=== PATIENT | female | born 1980 | race African-American/Black ===

== ENCOUNTER → 2018-07-07 | Outpatient (CLI) | payer BC | LOC: OD 16:29 | PROVIDERS: ATTEND Internal Medicine Rheumatology | DX: Z53.9 Procedure and treatment not carried out, unspecified reason (principal) ==

== ENCOUNTER → 2018-11-16 | Outpatient (CLI) | payer BC ==
--- NOTE | 2018-11-16 16:16 | XCELERA REPORT ---
[address] [address] Transthoracic Echocardiogram Report Name: GILSON AGUAYO Age: 37 yrs Gender: Female : 1980 Patient Status: Outpatient Patient Location: [facility] Study Date: 11/16/2018 02:14 PM Height: 26.5 in Weight: 180 lb BSA: 0.98 m2 Procedure: A complete two-dimensional transthoracic echocardiogram was performed (2D, M-mode, spectral and color flow Doppler). The study was technically adequate with some images being suboptimal in quality. Reason For Study: CP Ordering Physician: NANCI GRIMM Performed By: Pratibha Sorto Interpretation Summary The left ventricular ejection fraction is normal. There is normal left ventricular wall thickness. The left ventricle is normal in size. Doppler measurements suggest normal left ventricular diastolic function No regional wall motion abnormalities noted. The right ventricle is grossly normal size. The right ventricular systolic function is normal. The left atrial size is normal. The right atrium is normal. There is no mitral regurgitation noted. There is no mitral valve stenosis. There is no aortic valve stenosis No aortic regurgitation is present. There is a trace or physiologic amount of tricuspid regurgitation Right ventricular systolic pressure is at the upper limits of normal The aortic root is not well visualized but is probably normal size. The inferior vena cava appeared normal and decreased > 50% with respiration (RAP 5-10 mmHg) There is no pericardial effusion. MMode/2D Measurements & Calculations RVDd: 2.4 cm LVIDd: 4.7 cm FS: 41.2 % Ao root diam: IVSd: 0.89 cm LVIDs: 2.8 cm EDV(Teich): 2.7 cm 103.3 ml Ao root area: LVPWd: 0.90 cm ESV(Teich): 5.7 cm2 28.8 ml EF(Teich): 72.1 % EDV(MOD-sp4): SV(MOD-sp4): 104.6 ml 67.9 ml ESV(MOD-sp4): 36.7 ml EF(MOD-sp4): 65.0 % Doppler Measurements & Calculations MV E max thierry: MV dec slope: Ao V2 max: LV V1 max P.9 cm/sec 140.5 cm/sec 5.2 mmHg MV A max thierry: 404.9 cm/sec2 Ao max P.9 mmHgLV V1 max: 39.8 cm/sec MV dec time: 0.20 sec 114.5 cm/sec MV E/A: 2.1 PA V2 max: PI max thierry: TR max thierry: 91.9 cm/sec 96.4 cm/sec 223.1 cm/sec PA max P.4 mmHgPI max P.7 mmHg TR max P.2 mmHg Left Ventricle The left ventricle is normal in size. There is normal left ventricular wall thickness. The left ventricular ejection fraction is normal. Doppler measurements suggest normal left ventricular diastolic function. No regional wall motion abnormalities noted. Right Ventricle The right ventricle is grossly normal size. There is normal right ventricular wall thickness. The right ventricular systolic function is normal. Atria The right atrium is normal. The left atrial size is normal. Interarterial septum not well visualized and not well dopplered. Cannot comment on ASD/PFO presence. Mitral Valve The mitral valve is grossly normal. There is no evidence of mitral valve prolapse. There is no mitral valve stenosis. There is no mitral regurgitation noted. Aortic Valve The aortic valve is trileaflet. The aortic valve is grossly normal. There is no aortic valve stenosis. No aortic regurgitation is present. Tricuspid Valve The tricuspid valve is not well visualized, but is grossly normal. There is no tricuspid stenosis. There is a trace or physiologic amount of tricuspid regurgitation. Right ventricular systolic pressure is at the upper limits of normal. Pulmonic Valve The pulmonic valve is not well seen, but is grossly normal. There is no pulmonic valvular stenosis. There is a mild amount of pulmonic regurgitation. Great Vessels The aortic root is not well visualized but is probably normal size. The inferior vena cava appeared normal and decreased > 50% with respiration (RAP 5-10 mmHg). Effusions There is no pericardial effusion. : NANCI GRIMM > Tran Renee
== END ==
LOC: SP 13:40
PROVIDERS: ATTEND Internal Medicine
DX: R07.9 Chest pain, unspecified (principal)
CPT/HCPCS: 93306

== ENCOUNTER → 2019-01-18 | Outpatient (CLI) | payer BC ==
[2019-01-18 09:23] LABS: ABSOLUTE EOSINOPHILS # (AUTO) 0.1 10^3/uL (0.0-0.6); ABSOLUTE LYMPHOCYTES (AUTO) 1.5 10^3/uL (0.5-4.7); ABSOLUTE MONOCYTES (AUTO) 0.5 10^3/uL (0.1-1.4); BASOPHILS % (AUTO) 0.6 % (0-2); EOSINOPHILS % (AUTO) 2.4 % (0-6); HEMATOCRIT 31.4 % (36.0-47.0); HEMOGLOBIN 10.1 g/dL (12.0-15.5); LYMPHOCYTES % (AUTO) 28.2 % (13-45); MEAN CORPUSCULAR HEMOGLOBIN 25.7 pg (27.0-33.4); MEAN CORPUSCULAR HGB CONC 32.1 g/dL (32.0-36.0); MEAN CORPUSCULAR VOLUME 80 fl (80-97); MONOCYTES % (AUTO) 10.1 % (3-13); PLATELET COUNT 265 10^3/uL (150-450); RED BLOOD COUNT 3.92 10^6/uL (3.72-5.28); RED CELL DISTRIBUTION WIDTH 15.2 % (11.5-14.0); SEGMENTED NEUTROPHILS % (AUTO) 58.7 % (42-78); TOTAL CELLS COUNTED % (AUTO) 100 %; WHITE BLOOD COUNT 5.2 10^3/uL (4.0-10.5)
[2019-01-18 09:50] LABS: ALANINE AMINOTRANSFERASE 16 U/L (9-52); ALBUMIN 4.1 g/dL (3.5-5.0); ALKALINE PHOSPHATASE 80 U/L (38-126); ANION GAP 8 (5-19); ASPARTATE AMINO TRANSFERASE 19 U/L (14-36); BILIRUBIN,DIRECT 0.2 mg/dL (0.0-0.4); BILIRUBIN,TOTAL 0.4 mg/dL (0.2-1.3); BLOOD UREA NITROGEN 12 mg/dL (7-20); CALCIUM 9.8 mg/dL (8.4-10.2); CARBON DIOXIDE 27 mmol/L (22-30); CHLORIDE 107 mmol/L (98-107); GLUCOSE 88 mg/dL (75-110); SODIUM 142.3 mmol/L (137-145); TOTAL PROTEIN 7.1 g/dL (6.3-8.2)
--- NOTE | 2019-01-18 12:26 | RADIOLOGY REPORT (SQ) ---
EXAM DESCRIPTION: CT ABD/PELVIS WITH IV ORAL COMPLETED DATE/TIME: 01/18/2019 12:06 pm REASON FOR STUDY: ABDOMINAL PAIN R10.9 UNSPECIFIED ABDOMINAL PAIN COMPARISON: None. TECHNIQUE: CT scan of the abdomen and pelvis performed using helical scanning technique with dynamic intravenous contrast injection. Patient drank oral contrast. Images reviewed with lung, soft tissue , and bone windows. Reconstructed coronal and sagittal MPR images reviewed. Delayed images for evalua tion of the urinary system also acquired. All images stored on PACS. All CT scanners at this facility use dose modulation, iterative reconstruction, and/or weight based d osing when appropriate to reduce radiation dose to as low as reasonably achievable (ALARA). [facility]: Dose Right [facility]: CareDose [facility]: Dose Right [facility]: Teradose 4D [facility]: ARDACO CONTRAST TYPE AND DOSE: 85 mL of IV Omnipaque 350- low osmolar. RENAL FUNCTION: Creatinine 0.74 RADIATION DOSE: CT Rad equipment meets quality standard of care and radiation dose reduction techniq ues were employed. CTDIvol: 7.7 - 9.0 mGy. DLP: 929 mGy-cm.. LIMITATIONS: None. FINDINGS: LOWER CHEST: Lung bases clear. No nodules or infiltrates. Tiny hiatal hernia LIVER: Normal size. No masses. No dilated ducts. SPLEEN: Normal size. No focal lesions. PANCREAS: No masses. No significant calcifications. No adjacent inflammation or peripancreatic fluid collections. Pancreatic duct not dilated. GALLBLADDER: No identified stones by CT criteria. No inflammatory changes to suggest cholecystitis. ADRENAL GLANDS: No significant masses or asymmetry. RIGHT KIDNEY AND URETER: No solid masses. No significant calcifications. No hydronephrosis or hyd roureter. LEFT KIDNEY AND URETER: No solid masses. No significant calcifications. No hydronephrosis or hydr oureter. AORTA AND VESSELS: No aneurysm. No dissection. Renal arteries, SMA, celiac without stenosis. RETROPERITONEUM: No retroperitoneal adenopathy, hemorrhage or masses. BOWEL AND PERITONEAL CAVITY: Patient drank oral contrast. No CT evidence of bowel obstruction or norris e intraperitoneal air or fluid. APPENDIX: Normal. PELVIS: No mass. No free fluid. Normal bladder. Normal size female pelvic organs. 3.5 cm right ova delano cyst. No free pelvic fluid. ABDOMINAL WALL: No masses. No hernias. BONES: No significant or acute findings. OTHER: No other significant finding. IMPRESSION: NO SIGNIFICANT OR ACUTE FINDING IN THE ABDOMEN OR PELVIS ON CT SCAN WITH IV CONTRAST. TECHNICAL DOCUMENTATION: JOB ID: [id number] Quality ID # [id number]: Final reports with documentation of one or more dose reduction techniques (e.g., Au tomated exposure control, adjustment of the mA and/or kV according to patient size, use of iterative reconstruction technique) 2010 [employer]- All Rights Reserved Reading location - IP/workstation name: [email or web address]
== END ==
LOC: RAD 09:10
PROVIDERS: ATTEND Family Medicine Geriatric Medicine
DX: R10.9 Unspecified abdominal pain (principal); Z79.899 Other long term (current) drug therapy
CPT/HCPCS: 36415; 74177; 80053; 85025

== ENCOUNTER → 2019-09-26 | Outpatient (CLI) | payer BC ==
--- NOTE | 2019-09-26 09:43 | RADIOLOGY REPORT (SQ) ---
EXAM DESCRIPTION: MRI HEAD WITHOUT COMPLETED DATE/TIME: 09/26/2019 9:17 am REASON FOR STUDY: G43.009 MIGRAINE W/O AURA, NOT INTRACTABLE, W/O STATUS MIGRAINOSUS G43.009 MIGRAI NE W/O AURA, NOT INTRACTABLE, W/O STATUS MIGRA COMPARISON: None. TECHNIQUE: Multiplanar imaging includes non-contrasted T1, T2, FLAIR, and diffusion with ADC map seq uences. Images stored on PACS. LIMITATIONS: Artifact from metallic dental work over the facial soft tissues and inferior frontal re gion. FINDINGS: ANATOMY: No anomalies. Normal vascular flow voids. Pituitary fossa normal. CSF SPACES: Normal in size and contour. No hemorrhage. CEREBRUM: Sulci and gyri normal in size and contour. Normal white matter signal on FLAIR imaging. No evidence of hemorrhage, mass, or extraaxial fluid collection. POSTERIOR FOSSA: No signal alteration. No hemorrhage. No edema, masses or mass effect. Internal chinyere tory canals, cerebello-pontine angles, mastoids normal. DIFFUSION IMAGING: Negative for acute or sub-acute infarction. ORBITS: No masses. Globes normal. PARANASAL SINUSES: No fluid levels. Mucosa normal. OTHER: No other significant finding. IMPRESSION: NORMAL MRI OF THE BRAIN WITHOUT INTRAVENOUS GADOLINIUM CONTRAST. EVIDENCE OF ACUTE STROKE: NO. TECHNICAL DOCUMENTATION: JOB ID: [id number]- All Rights Reserved Reading location - IP/workstation name: [email or web address]
== END ==
LOC: RAD 08:42
PROVIDERS: ATTEND Nurse Practitioner Family
DX: G43.009 Migraine without aura, not intractable, without status migrainosus (principal)
CPT/HCPCS: 70551

== ENCOUNTER → 2019-10-11 | Outpatient (CLI) | payer BC ==
--- NOTE | 2019-10-12 12:07 | XCELERA REPORT ---
[address] [place] [facility] [address] Lower Extremity Venous Evaluation Procedure: Color flow and duplex imaging of the veins of the left lower extremity as well as the right Common Femoral vein. Right Sided Venous Evaluation The right common femoral vein is fully compressible. Spontaneous and phasic flow is present in the right common femoral vein. Left Sided Venous Evaluation Normal vessel filling wall to wall, compression and augmentation as well as Colour flow down to the infrageniculate veins. Interpretation Summary No duplex evidence of DVT or obstruction in the left lower extremity nor in the right Common Femoral vein. Name: GILSON AGUAYO Age: 38 yrs Gender: Female : 1980 Patient Status: Outpatient Patient Location: Study Date: 10/11/2019 03:45 PM Reason For Study: LLE PAIN Ordering Physician: EVITA BELLO Performed By: Arnie Guillen : EVITA BELLO > Kendell Crawley
== END ==
LOC: SP 15:17
PROVIDERS: ATTEND Internal Medicine
DX: I82.409 Acute embolism and thrombosis of unspecified deep veins of unspecified lower extremity (principal); M79.605 Pain in left leg
CPT/HCPCS: 93971

== ENCOUNTER → 2019-12-22 | Outpatient (CLI) | payer BC ==
[2019-12-22 09:57] LABS: TRIGLYCERIDES 71 mg/dL (<150)
[2019-12-22 10:07] LABS: DIRECT LDL 93 mg/dL (<100)
== END ==
LOC: OD 08:38
PROVIDERS: ATTEND Nurse Practitioner Family
DX: E03.9 Hypothyroidism, unspecified (principal); E78.2 Mixed hyperlipidemia; I10 Essential (primary) hypertension; Z79.899 Other long term (current) drug therapy
CPT/HCPCS: 36415; 80061; 83036; 84443

== ENCOUNTER 2020-02-20 17:11 | Emergency (ER) | payer BC ==
[2020-02-20] MEDS ORDERED: ONDANSETRON HCL INJ/PF 4 MG/2 ML SDV IV ONE (18:08)
[2020-02-20] MEDS ORDERED: RINGERS SOLUTION,LACTATED 1,000 ML IV ONE (18:08)
--- NOTE | 2020-02-20 18:10 | ER Document Report ---
ED Medical Screen (RME) - General Chief Complaint: Abnormal Lab Results Stated Complaint: ABNORMAL LABS Time Seen by Provider: 02/20/20 18:01 Primary Care Provider: STACEY BARTHOLOMEW FNP-C [Primary Care Provider] - Follow up as needed Mode of Arrival: Ambulatory Information source: Patient Notes: HPI; 39-year-old female presents emergency room complaining of ongoing nausea, vomiting, joint pain, itching and abdominal pain that started about 4 to 6 weeks ago has been seeing her dredge runner and getting steroids and infusion treatments. States on Tuesday she noticed that her eyes were yellow. Saw her dredge runner who did labs and referred her to the emergency room for abnormal liver enzymes. Patient does complain of right upper quadrant pain also complains of nausea but no vomiting. PE: Alert and oriented x3, mild distress noted. Scleral icterus. Lungs: Clear to auscultation without rales rhonchi wheezes. Heart: Regular rate rhythm without murmurs, rubs, gallops. Abdomen tender on palpation to the right upper quadrant. Unable to do full abdominal exam in triage. I have greeted and performed a rapid initial assessment of this patient. A com prehensive ED assessment and evaluation of the patient, analysis of test results and completion of the medical decision making process will be conducted by additional ED providers. I have specifically instructed the patient or family members with the patient to immediately return to any nursing staff should anything change in the patient's condition or with their chief complaint. TRAVEL OUTSIDE OF THE [place] IN LAST 30 DAYS: No - Related Data Allergies/Adverse Reactions: adalimumab [From Humira] Allergy (Verified 02/20/20 18:06) Physical Exam - Vital signs Vitals: Temp Pulse Resp BP Pulse Ox 98.5 F 101 H 20 188/103 H 98 02/20/20 17:16 02/20/20 17:16 02/20/20 17:16 02/20/20 17:16 02/20/20 17:16 Course - Vital Signs Vital signs: Temp Pulse Resp BP Pulse Ox 98.5 F 101 H 20 188/103 H 98 02/20/20 18:02 02/20/20 17:16 02/20/20 17:16 02/20/20 17:16 02/20/20 17:16 Doctor's Discharge - Discharge Referrals: GILBERT,STORMY, COMMUNITY FACILITATOR-C [Primary Care Provider] - Follow up as needed
--- NOTE | 2020-02-20 18:54 | RADIOLOGY REPORT (SQ) ---
EXAM DESCRIPTION: U/S ABDOMEN LTD W/DOPPLER IMAGES COMPLETED DATE/TIME: 02/20/2020 6:44 pm REASON FOR STUDY: RUQ pain COMPARISON: None. TECHNIQUE: Dynamic and static grayscale images acquired of the abdomen and recorded on PACS. Additio nal selected color Doppler and spectral images recorded. LIMITATIONS: None. FINDINGS: PANCREAS: The head and body of the pancreas are of normal echogenicity. The tail is obsc ured by overlying bowel gas. LIVER: Fatty liver. The liver measures 17.1 cm in length, upper limits of normal for size. LIVER VASCULATURE: Normal directional flow of the main portal vein and hepatic veins. GALLBLADDER: The patient is not NPO. The gallbladder is partially contracted which limits the examin ation. The gallbladder wall measures 3.0 mm, upper limits normal wall thickness. No pericholecystic fluid. ULTRASOUND-DETECTED LUCAS'S SIGN: Positive. INTRAHEPATIC DUCTS AND COMMON DUCT: CBD measures 3.0 mm in diameter, normal. The intrahepatic ducts normal caliber. No filling defects. INFERIOR VENA CAVA: Normal flow. AORTA: No aneurysm. RIGHT KIDNEY: The right kidney measures 12.0 x 4.9 x 5.7 cm, normal Normal size. Normal echogenicity . No solid or suspicious masses. No hydronephrosis. No calcifications. PERITONEAL AND RIGHT PLEURAL SPACE: No ascites or effusions. OTHER: No other significant findings. IMPRESSION: 1. The patient is not NPO. The gallbladder is partially contracted which limits examina tion. Positive Lucas's sign. 2. Fatty liver. 3. The tail of the pancreas is obscured by overlying bowel gas. TECHNICAL DOCUMENTATION: JOB ID: [id number] 2010 [employer]- All Rights Reserved Reading location - IP/workstation name: [email or web address]
[2020-02-20 19:07] LABS: HEMATOCRIT 33.1 % (36.0-47.0); MEAN CORPUSCULAR HGB CONC 33.2 g/dL (32.0-36.0); MEAN CORPUSCULAR VOLUME 81 fl (80-97); PLATELET COUNT 258 10^3/uL (150-450); RED BLOOD COUNT 4.07 10^6/uL (3.72-5.28); RED CELL DISTRIBUTION WIDTH 18.5 % (11.5-14.0); WHITE BLOOD COUNT 5.6 10^3/uL (4.0-10.5)
[2020-02-20 19:23] LABS: ALBUMIN 3.9 g/dL (3.5-5.0); ALKALINE PHOSPHATASE 376 U/L (38-126); AMYLASE 98 U/L (30-110); ANION GAP 6 (5-19); BILIRUBIN,DIRECT 6.1 mg/dL (0.0-0.4); BILIRUBIN,TOTAL 7.3 mg/dL (0.2-1.3); BLOOD UREA NITROGEN 8 mg/dL (7-20); CALCIUM 9.6 mg/dL (8.4-10.2); CARBON DIOXIDE 30 mmol/L (22-30); CHLORIDE 104 mmol/L (98-107); GLUCOSE 98 mg/dL (75-110); POTASSIUM 3.7 mmol/L (3.6-5.0); TOTAL PROTEIN 8.9 g/dL (6.3-8.2)
[2020-02-20 19:25] LABS: ABSOLUTE LYMPHOCYTES# (MANUAL) 2.2 10^3/uL (0.5-4.7); ABSOLUTE MONOCYTES # (MANUAL) 0.7 10^3/uL (0.1-1.4); BASOPHILS % (MANUAL) 1 % (0-2); EOSINOPHILS % (MANUAL) 1 % (0-6); LYMPHOCYTES % (MANUAL) 40 % (13-45); METAMYELOCYTES % (MANUAL) 1 % (0-1); MONOCYTES % (MANUAL) 13 % (3-13); SEGMENTED NEUTROPHILS % (MAN) 44 % (42-78); TOTAL CELLS COUNTED 100
[2020-02-20 19:26] LABS: ANISOCYTOSIS 2+; APPEARANCE,URINE CLEAR; BILIRUBIN,URINE NEGATIVE (NEGATIVE); COLOR,URINE AMBER; GLUCOSE, URINE NEGATIVE (NEGATIVE); KETONES,URINE NEGATIVE (NEGATIVE); LEUKOCYTE ESTERASE,URINE NEGATIVE (NEGATIVE); NITRITE,URINE NEGATIVE (NEGATIVE); PLATELET COMMENT ADEQUATE; PROTEIN,URINE NEGATIVE (NEGATIVE); TARGET CELLS 2+
[2020-02-20 20:48] LABS: ASPARTATE AMINO TRANSFERASE 1921 U/L (14-36)
[2020-02-20] MEDS ORDERED: ONDANSETRON HCL INJ/PF 4 MG/2 ML SDV ONE (20:57)
--- NOTE | 2020-02-20 23:11 | ER Document Report ---
ED General - General Chief Complaint: Abnormal Lab Results Stated Complaint: ABNORMAL LABS Time Seen by Provider: 02/20/20 18:01 Primary Care Provider: STACEY BARTHOLOMEW FNP-C [Primary Care Provider] - Follow up as needed Mode of Arrival: Ambulatory TRAVEL OUTSIDE OF THE [place] IN LAST 30 DAYS: No - HPI Onset: Other - over the last 6 weeks Onset/Duration: Gradual Quality of pain: Pressure - in RUQ area Severity: Moderate Pain Level: 2 Associated symptoms: Diarrhea, Nausea, Vomiting Exacerbated by: Denies Relieved by: Denies Similar symptoms previously: No Recently seen / treated by doctor: Yes - patient has been seen and followed by her Laborer Salvage recently Notes: 39 year old female with a history of Hypothyroidism, Hypertension, Nonischemic Cardiomyopathy, Rheumatoid Arthritis who was recently started in Infliximab infusions in November (her last infusion was in January) sent to the ER by her Rheum atologist due to concern of liver failure. 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 The patient was recently tested for Hepatitis(s) last week and they were all negative. - Related Data Allergies/Adverse Reactions: adalimumab [From Humira] Allergy (Verified 02/20/20 18:06) Past Medical History - General Information source: Patient - Social History Smoking Status: Never Smoker Frequency of alcohol use: None Drug Abuse: None Family History: Reviewed & Not Pertinent Patient has suicidal ideation: No Patient has homicidal ideation: No - Past Medical History Cardiac Medical History: Reports: Hx Hypertension Endocrine Medical History: Reports: Hx Hypothyroidism Musculoskeletal Medical History: Reports Other - Rheumatoid Arthritis Review of Systems - Review of Systems Constitutional: No symptoms reported, Weakness EENT: No symptoms reported Cardiovascular: No symptoms reported Respiratory: No symptoms reported Gastrointestinal: Abdominal pain, Diarrhea, Nausea, Vomiting Genitourinary: Other - dark colored urine Female Genitourinary: No symptoms reported Musculoskeletal: No symptoms reported Skin: Other - yellow colored skin, itchy skin Hematologic/Lymphatic: No symptoms reported Neurological/Psychological: No symptoms reported -: Yes All other systems reviewed and negative Physical Exam - Vital signs Vitals: Temp Pulse Resp BP Pulse Ox 98.5 F 101 H 20 188/103 H 98 02/20/20 17:16 02/20/20 17:16 02/20/20 17:16 02/20/20 17:16 02/20/20 17:16 - Notes Notes: GENERAL: Well-appearing, well-nourished and in no acute distress. HEAD: Atraumatic, normocephalic. EYES: Scleral icterus, Pupils equal round and reactive to light, extraocular movements intact ENT: External Ears normal, nares patent, oropharynx clear without exudates. Moist mucous membranes. NECK: Normal range of motion, supple without lymphadenopathy or JVD. LUNGS: Breath sounds clear to auscultation bilaterally and equal. No wheezes rales or rhonchi. HEART: Regular rate and rhythm without murmurs, rubs or gallops. ABDOMEN: Soft, mild tenderness in RUQ, normoactive bowel sounds. No guarding, no rebound. No masses appreciated. EXTREMITIES: Normal range of motion, no pitting or edema. No clubbing or cyanosis. NEUROLOGICAL: Cranial nerves II through XII grossly intact. Normal speech, normal gait. PSYCH: Normal mood, normal affect. SKIN: Warm, Dry, normal turgor, no rashes or lesions noted. Course - Re-evaluation Re-evalutation: 02/21/20 00:16 The patient is in new onset liver failure which could be due to an autoimmune disease or a medication side effect or other cause. RUQ ultrasound shows mild he patic steatosis. There is no GI here at [facility] so [facility] was called. 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 No interventions needed here in the ER at this time. The patient has received fluids and zofran after she was screen by a midlevel provider in triage before I evaluated the patient. - Vital Signs Vital signs: Temp Pulse Resp BP Pulse Ox 98.3 F 99 20 159/88 H 100 02/20/20 22:15 02/20/20 22:15 02/20/20 20:36 02/20/20 22:15 02/20/20 22:15 - Laboratory Result Diagrams: 02/20/20 18:45 02/20/20 18:45 Laboratory results interpreted by me: 02/20/20 02/20/20 02/20/20 18:45 18:45 18:45 Hgb 11.0 L Hct 33.1 L RDW 18.5 H Total Bilirubin 7.3 H Direct Bilirubin 6.1 H AST 1921 H ALT 709 H Alkaline Phosphatase 376 H Total Protein 8.9 H Urine Urobilinogen 4.0 H Acetaminophen 02/20/20 18:45 Hgb Hct RDW Total Bilirubin Direct Bilirubin AST ALT Alkaline Phosphatase Total Protein Urine Urobilinogen Acetaminophen < 10 L - Diagnostic Test Radiology reviewed: Image reviewed, Reports reviewed Discharge - Discharge Clinical Impression: Liver failure Qualifiers: Liver failure chronicity: acute Hepatic coma status: without hepatic coma Qualified Code(s): K72.00 - Acute and subacute hepatic failure without coma Condition: Stable Disposition: [facility] Admitting Provider: Dr. Rao Referrals: STACEY BARTHOLOMEW FNP-C [Primary Care Provider] - Follow up as needed
[2020-02-21 00:49] LABS: INTERNATIONAL RATION (INR) 1.01; PROTHROMBIN TIME 13.3 SEC (11.4-15.4)
[2020-02-21] MEDS ORDERED: ONDANSETRON HCL INJ/PF 4 MG/2 ML SDV IV ONE ×2 (09:47→19:51)
[2020-02-21] MEDS ORDERED: LEVOTHYROXINE SODIUM 0.025 MG TABLET PO ONE ×2 (11:07→16:30)
[2020-02-21] MEDS ORDERED: RANOLAZINE 500 MG TAB.SR.12H PO ONE (11:13)
[2020-02-21] MEDS ORDERED: CHLORTHALIDONE 25 MG TABLET PO SCH ×2 (11:15→12:00)
[2020-02-21] MEDS: LOSARTAN POTASSIUM 50 MG TABLET PO SCH ×2 (13:10→17:42)
[2020-02-21] MEDS ORDERED: IBUPROFEN 600 MG TABLET PO ONE (13:21)
[2020-02-21 22:59] VITALS: BP 148/105
--- NOTE | 2020-02-22 02:08 | ER Document Report ---
Doctor's Note Notes: 02/22/20 02:07 This note is being entered late, patient was seen on 02/21/2020 at 2300. Patient was sitting up in bed, quite cheerful, stable, still had scleral icterus. Transport was at bedside. Patient had no questions. She is stable for transport.
== END 2020-02-21 20:30 | disposition short-term general hospital (02) ==
LOC: ER 17:11
DX: K72.00 Acute and subacute hepatic failure without coma (principal); I10 Essential (primary) hypertension; R19.7 Diarrhea, unspecified; R11.2 Nausea with vomiting, unspecified; R10.11 Right upper quadrant pain; Z20.828 Contact with and (suspected) exposure to other viral communicable diseases
CPT/HCPCS: 96376; 99285; 96361; 96374; 36415; 82150; 83690; 80307; 85025; 85610; 85730; 87635; 80053; 81001; 76705; 93976; J2405 ×2; J7120; C9803

== ENCOUNTER → 2020-03-03 | Outpatient (CLI) | payer BC ==
[2020-03-03 13:02] LABS: HEMATOCRIT 34.6 % (36.0-47.0); HEMOGLOBIN 11.4 g/dL (12.0-15.5); INTERNATIONAL RATION (INR) 0.93; MEAN CORPUSCULAR HEMOGLOBIN 27.2 pg (27.0-33.4); MEAN CORPUSCULAR VOLUME 82 fl (80-97); PROTHROMBIN TIME 12.5 SEC (11.4-15.4); RED BLOOD COUNT 4.21 10^6/uL (3.72-5.28); RED CELL DISTRIBUTION WIDTH 18.3 % (11.5-14.0); WHITE BLOOD COUNT 11.4 10^3/uL (4.0-10.5)
[2020-03-03 13:19] LABS: ALBUMIN 3.6 g/dL (3.5-5.0); ALKALINE PHOSPHATASE 309 U/L (38-126); ASPARTATE AMINO TRANSFERASE 269 U/L (14-36); BILIRUBIN,DIRECT 2.7 mg/dL (0.0-0.4); BILIRUBIN,TOTAL 3.8 mg/dL (0.2-1.3); TOTAL PROTEIN 7.5 g/dL (6.3-8.2)
[2020-03-03 13:32] LABS: ABSOLUTE MONOCYTES # (MANUAL) 0.6 10^3/uL (0.1-1.4); BAND NEUTROPHILS % (MANUAL) 1 % (3-5); BASOPHILS % (MANUAL) 0 % (0-2); EOSINOPHILS % (MANUAL) 0 % (0-6); LYMPHOCYTES % (MANUAL) 9 % (13-45); MONOCYTES % (MANUAL) 5 % (3-13); SEGMENTED NEUTROPHILS % (MAN) 85 % (42-78); TOTAL CELLS COUNTED 100
[2020-03-03 13:33] LABS: ANISOCYTOSIS 2+; PLATELET CLUMPS PRESENT; POIKILOCYTOSIS SLIGHT; POLYCHROMASIA 1+; SCHISTOCYTES SLIGHT; TARGET CELLS 2+; TEAR DROP CELLS SLIGHT
[2020-03-03 13:34] LABS: PLATELET COMMENT ADEQUATE; PLATELET COUNT 296 10^3/uL (150-450)
== END ==
LOC: OD 12:01
PROVIDERS: ATTEND Internal Medicine
DX: K75.4 Autoimmune hepatitis (principal); R94.5 Abnormal results of liver function studies
CPT/HCPCS: 36415; 80076; 85025; 85610

== ENCOUNTER → 2020-03-05 | Outpatient (CLI) | payer BC ==
--- NOTE | 2020-03-05 17:09 | RADIOLOGY REPORT (SQ) ---
EXAM DESCRIPTION: CHEST PA/LATERAL IMAGES COMPLETED DATE/TIME: 03/05/2020 4:51 pm REASON FOR STUDY: PLEURISY COMPARISON: None. EXAM PARAMETERS: NUMBER OF VIEWS: two views TECHNIQUE: Digital Frontal and Lateral radiographic views of the chest acquired. RADIATION DOSE: NA LIMITATIONS: none FINDINGS: LUNGS AND PLEURA: No opacities, masses or pneumothorax. No pleural effusion. MEDIASTINUM AND HILAR STRUCTURES: No masses or contour abnormalities. HEART AND VASCULAR STRUCTURES: Heart normal size. No evidence for failure. BONES: No acute findings. HARDWARE: None in the chest. OTHER: No other significant finding. IMPRESSION: NO SIGNIFICANT RADIOGRAPHIC FINDING IN THE CHEST. TECHNICAL DOCUMENTATION: JOB ID: [id number] 2010 [employer]- All Rights Reserved Reading location - IP/workstation name: [email or web address]
== END ==
LOC: OD 16:39
PROVIDERS: ATTEND Nurse Practitioner Family
DX: R09.1 Pleurisy (principal)
CPT/HCPCS: 71046

== ENCOUNTER → 2020-03-19 | Outpatient (CLI) | payer BC ==
[2020-03-19 08:23] LABS: ABSOLUTE LYMPHOCYTES (AUTO) 3.5 10^3/uL (0.5-4.7); ABSOLUTE MONOCYTES (AUTO) 0.7 10^3/uL (0.1-1.4); ABSOLUTE NEUT (AUTO) 4.9 10^3/uL (1.7-8.2); BASOPHILS % (AUTO) 0.3 % (0-2); EOSINOPHILS % (AUTO) 0.3 % (0-6); HEMATOCRIT 36.8 % (36.0-47.0); HEMOGLOBIN 12.1 g/dL (12.0-15.5); LYMPHOCYTES % (AUTO) 38.1 % (13-45); MEAN CORPUSCULAR HEMOGLOBIN 27.7 pg (27.0-33.4); MEAN CORPUSCULAR HGB CONC 32.8 g/dL (32.0-36.0); MEAN CORPUSCULAR VOLUME 84 fl (80-97); MONOCYTES % (AUTO) 7.9 % (3-13); PLATELET COUNT 235 10^3/uL (150-450); RED BLOOD COUNT 4.37 10^6/uL (3.72-5.28); RED CELL DISTRIBUTION WIDTH 18.1 % (11.5-14.0); SEGMENTED NEUTROPHILS % (AUTO) 53.4 % (42-78); TOTAL CELLS COUNTED % (AUTO) 100 %; WHITE BLOOD COUNT 9.2 10^3/uL (4.0-10.5)
[2020-03-19 08:28] LABS: ALBUMIN 3.5 g/dL (3.5-5.0); ALKALINE PHOSPHATASE 183 U/L (38-126); ASPARTATE AMINO TRANSFERASE 117 U/L (14-36); BILIRUBIN,DIRECT 0.6 mg/dL (0.0-0.4); BILIRUBIN,TOTAL 1.4 mg/dL (0.2-1.3); BLOOD UREA NITROGEN 15 mg/dL (7-20); CALCIUM 9.3 mg/dL (8.4-10.2); GLUCOSE 97 mg/dL (75-110); POTASSIUM 3.3 mmol/L (3.6-5.0)
[2020-03-19 08:33] LABS: CARBON DIOXIDE 33 mmol/L (22-30); CHLORIDE 99 mmol/L (98-107)
[2020-03-19 08:38] LABS: ANION GAP 3 (5-19)
== END ==
LOC: OD 07:04
PROVIDERS: ATTEND Nurse Practitioner Family
DX: K75.4 Autoimmune hepatitis (principal)
CPT/HCPCS: 36415; 80053; 85025; 85730

== ENCOUNTER → 2020-03-29 | Outpatient (CLI) | payer BC ==
[2020-03-29 08:48] LABS: ABSOLUTE LYMPHOCYTES (AUTO) 3.3 10^3/uL (0.5-4.7); ABSOLUTE MONOCYTES (AUTO) 0.8 10^3/uL (0.1-1.4); ABSOLUTE NEUT (AUTO) 4.9 10^3/uL (1.7-8.2); BASOPHILS % (AUTO) 0.4 % (0-2); EOSINOPHILS % (AUTO) 0.3 % (0-6); HEMATOCRIT 37.6 % (36.0-47.0); HEMOGLOBIN 12.5 g/dL (12.0-15.5); LYMPHOCYTES % (AUTO) 36.6 % (13-45); MEAN CORPUSCULAR HGB CONC 33.1 g/dL (32.0-36.0); MEAN CORPUSCULAR VOLUME 85 fl (80-97); MONOCYTES % (AUTO) 8.6 % (3-13); PLATELET COUNT 232 10^3/uL (150-450); RED BLOOD COUNT 4.45 10^6/uL (3.72-5.28); SEGMENTED NEUTROPHILS % (AUTO) 54.1 % (42-78); TOTAL CELLS COUNTED % (AUTO) 100 %
[2020-03-29 08:52] LABS: INTERNATIONAL RATION (INR) 0.94; PROTHROMBIN TIME 12.6 SEC (11.4-15.4)
[2020-03-29 09:14] LABS: ALBUMIN 3.7 g/dL (3.5-5.0); ALKALINE PHOSPHATASE 169 U/L (38-126); ASPARTATE AMINO TRANSFERASE 92 U/L (14-36); BILIRUBIN,DIRECT 0.4 mg/dL (0.0-0.4); BILIRUBIN,TOTAL 0.9 mg/dL (0.2-1.3); BLOOD UREA NITROGEN 11 mg/dL (7-20); CALCIUM 9.5 mg/dL (8.4-10.2); GLUCOSE 101 mg/dL (75-110); POTASSIUM 3.3 mmol/L (3.6-5.0)
[2020-03-29 09:20] LABS: CARBON DIOXIDE 37 mmol/L (22-30); CHLORIDE 99 mmol/L (98-107)
[2020-03-29 09:25] LABS: ANION GAP 1 (5-19)
== END ==
LOC: OD 08:14
PROVIDERS: ATTEND Nurse Practitioner Family
DX: E03.9 Hypothyroidism, unspecified (principal); K75.4 Autoimmune hepatitis; Z79.899 Other long term (current) drug therapy
CPT/HCPCS: 36415; 80053; 84443; 85025; 85610

== ENCOUNTER → 2020-04-14 | Outpatient (CLI) | payer BC ==
[2020-04-14 14:36] LABS: ALBUMIN 4.2 g/dL (3.5-5.0); ALKALINE PHOSPHATASE 186 U/L (38-126); ANION GAP 11 (5-19); ASPARTATE AMINO TRANSFERASE 52 U/L (14-36); BILIRUBIN,DIRECT 0.3 mg/dL (0.0-0.4); BILIRUBIN,TOTAL 0.9 mg/dL (0.2-1.3); BLOOD UREA NITROGEN 21 mg/dL (7-20); CALCIUM 9.2 mg/dL (8.4-10.2); CARBON DIOXIDE 25 mmol/L (22-30); CHLORIDE 92 mmol/L (98-107); POTASSIUM 4.6 mmol/L (3.6-5.0); TOTAL PROTEIN 7.3 g/dL (6.3-8.2)
[2020-04-14 16:01] LABS: GLUCOSE 543 mg/dL (75-110)
== END ==
LOC: OD 12:42
PROVIDERS: ATTEND Nurse Practitioner Family
DX: R73.9 Hyperglycemia, unspecified (principal); K75.4 Autoimmune hepatitis; Z79.52 Long term (current) use of systemic steroids
CPT/HCPCS: 36415; 80053; 83036

== ENCOUNTER → 2020-04-25 | Outpatient (CLI) | payer BC ==
[2020-04-25 09:05] LABS: ALBUMIN 3.5 g/dL (3.5-5.0); ALKALINE PHOSPHATASE 169 U/L (38-126); ANION GAP 7 (5-19); ASPARTATE AMINO TRANSFERASE 67 U/L (14-36); BILIRUBIN,DIRECT 0.1 mg/dL (0.0-0.4); BILIRUBIN,TOTAL 0.5 mg/dL (0.2-1.3); BLOOD UREA NITROGEN 12 mg/dL (7-20); CALCIUM 9.1 mg/dL (8.4-10.2); CARBON DIOXIDE 35 mmol/L (22-30); CHLORIDE 94 mmol/L (98-107); GLUCOSE 317 mg/dL (75-110); TOTAL PROTEIN 6.1 g/dL (6.3-8.2)
== END ==
LOC: OD 07:18
PROVIDERS: ATTEND Nurse Practitioner Family
DX: E11.65 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 mellitus with hyperglycemia (principal); K75.4 Autoimmune hepatitis
CPT/HCPCS: 36415; 80053; 84681

== ENCOUNTER → 2020-05-17 | Outpatient (CLI) | payer BC ==
[2020-05-17 11:14] LABS: ALBUMIN 3.7 g/dL (3.5-5.0); ALKALINE PHOSPHATASE 187 U/L (38-126); ANION GAP 9 (5-19); ASPARTATE AMINO TRANSFERASE 68 U/L (14-36); BILIRUBIN,DIRECT 0.3 mg/dL (0.0-0.4); BILIRUBIN,TOTAL 0.5 mg/dL (0.2-1.3); BLOOD UREA NITROGEN 14 mg/dL (7-20); CALCIUM 9.3 mg/dL (8.4-10.2); CARBON DIOXIDE 32 mmol/L (22-30); CHLORIDE 97 mmol/L (98-107); GLUCOSE 225 mg/dL (75-110); POTASSIUM 3.1 mmol/L (3.6-5.0); TOTAL PROTEIN 6.1 g/dL (6.3-8.2)
== END ==
LOC: OD 10:11
PROVIDERS: ATTEND Nurse Practitioner Family
DX: K75.4 Autoimmune hepatitis (principal); E87.6 Hypokalemia
CPT/HCPCS: 36415; 80053

== ENCOUNTER → 2020-06-13 | Outpatient (CLI) | payer BC ==
[2020-06-13 13:14] LABS: ALBUMIN 4.2 g/dL (3.5-5.0); ALKALINE PHOSPHATASE 121 U/L (38-126); ANION GAP 7 (5-19); ASPARTATE AMINO TRANSFERASE 45 U/L (14-36); BILIRUBIN,DIRECT 0.3 mg/dL (0.0-0.4); BILIRUBIN,TOTAL 0.5 mg/dL (0.2-1.3); BLOOD UREA NITROGEN 13 mg/dL (7-20); CALCIUM 9.5 mg/dL (8.4-10.2); CARBON DIOXIDE 33 mmol/L (22-30); CHLORIDE 98 mmol/L (98-107); GLUCOSE 103 mg/dL (75-110); POTASSIUM 4.2 mmol/L (3.6-5.0); TOTAL PROTEIN 7.1 g/dL (6.3-8.2)
== END ==
LOC: OD 12:11
PROVIDERS: ATTEND Nurse Practitioner Family
DX: K75.4 Autoimmune hepatitis (principal); E87.6 Hypokalemia; R94.5 Abnormal results of liver function studies
CPT/HCPCS: 36415; 80053

== ENCOUNTER → 2020-06-27 | Outpatient (CLI) | payer BC ==
[2020-06-27 13:19] LABS: ABSOLUTE LYMPHOCYTES (AUTO) 1.3 10^3/uL (0.5-4.7); ABSOLUTE MONOCYTES (AUTO) 0.6 10^3/uL (0.1-1.4); ABSOLUTE NEUT (AUTO) 9.8 10^3/uL (1.7-8.2); BASOPHILS % (AUTO) 0.2 % (0-2); HEMATOCRIT 34.2 % (36.0-47.0); HEMOGLOBIN 11.2 g/dL (12.0-15.5); MEAN CORPUSCULAR HEMOGLOBIN 28.3 pg (27.0-33.4); MEAN CORPUSCULAR HGB CONC 32.7 g/dL (32.0-36.0); MEAN CORPUSCULAR VOLUME 86 fl (80-97); PLATELET COUNT 287 10^3/uL (150-450); RED BLOOD COUNT 3.97 10^6/uL (3.72-5.28); RED CELL DISTRIBUTION WIDTH 14.9 % (11.5-14.0); SEGMENTED NEUTROPHILS % (AUTO) 83.8 % (42-78); TOTAL CELLS COUNTED % (AUTO) 100 %; WHITE BLOOD COUNT 11.7 10^3/uL (4.0-10.5)
[2020-06-27 13:46] LABS: ALBUMIN 4.2 g/dL (3.5-5.0); ALKALINE PHOSPHATASE 125 U/L (38-126); ANION GAP 8 (5-19); ASPARTATE AMINO TRANSFERASE 40 U/L (14-36); BILIRUBIN,DIRECT 0.3 mg/dL (0.0-0.4); BILIRUBIN,TOTAL 0.5 mg/dL (0.2-1.3); BLOOD UREA NITROGEN 13 mg/dL (7-20); CALCIUM 9.7 mg/dL (8.4-10.2); CARBON DIOXIDE 32 mmol/L (22-30); CHLORIDE 98 mmol/L (98-107); GLUCOSE 148 mg/dL (75-110); POTASSIUM 4.2 mmol/L (3.6-5.0)
== END ==
LOC: OD 12:37
PROVIDERS: ATTEND Nurse Practitioner Family
DX: E11.65 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 mellitus with hyperglycemia (principal); K75.4 Autoimmune hepatitis; R94.5 Abnormal results of liver function studies; Z79.899 Other long term (current) drug therapy
CPT/HCPCS: 36415; 80053; 84681; 85025

== ENCOUNTER → 2020-07-16 | Outpatient (CLI) | payer BC ==
[2020-07-16 09:54] VITALS: BP 131/86
--- NOTE | 2020-07-16 09:54 | ER RDC ASSESSMENT REPORT ---
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 [employer] - Symptoms Subjective Fever(Shelby feverish): No Chills: No Muscule Aches: Yes Runny Nose: No Sore Throat: No Cough (New or worsening chronic cough): No Shortness of breath: No Nausea or Vomiting: No Headache: No Abdominal Pain: No Diarrhea(3 or more loose stools in last 24 hours): No - Do you have any of the following Chronic lung disease: Asthma or emphysema or COPD: No Cystic Fibrosis: No Diabetes: Yes Diabetes Comment: HX diabetes type 2 High Blood Pressure: Yes Cardiovascular Disease: Yes Chronic Kidney Disease: No Chronic Liver Disease: No Chronic blood disorder like Sickle Cell Disease: No Weak immune system due to disease or medication: No Neurologic condition that limits movement: No Developmental delay - Moderate to Severe: No Recent (within past 2 weeks) or current : No Morbid Obesity (>100 pounds over ideal weight): No Obesity Comment: Height 5 feet 7 inches weight 225 pounds Other Comment: History of rheumatoid arthritis - Objective Temperature: 98.6 F Pulse Rate: 81 Respiratory Rate: 16 Blood Pressure: 131/86 O2 Sat by Pulse Oximetry: 95 Objective: Given above, testing performed: If Testing Performed: Test Specimen Type Sent to General - General Information source: Patient Notes: Patient here at [facility] for Covid testing patient had exposure to her manager hris taking family photos around [facility] patient's manager hris was tested positive last week and patient had exposure to that person 5 days prior. Patient has rheumatoid arthritis and is exhibiting symptoms of joint pain and swelling and unsure if this is related to underlying rheumatoid arthritis condition versus Covid exposure. - Related Data Allergies/Adverse Reactions: adalimumab [From Humira] Allergy (Verified 02/20/20 18:06) Past Medical History - General Information source: Patient - Social History Smoking Status: Never Smoker Family History: Reviewed & Not Pertinent - Past Medical History Cardiac Medical History: Reports: Hx Hypertension Endocrine Medical History: Reports: Hx Hypothyroidism Physical Exam - General General appearance: Appears well, Alert In distress: None Notes: PHYSICAL EXAMINATION: GENERAL: Well-appearing and in no acute distress. HEAD: Atraumatic, normocephalic. EYES: sclera anicteric, conjunctiva are normal. ENT: nares patent. Moist mucous membranes. NECK: Normal range of motion, supple without lymphadenopathy LUNGS: CTAB and equal. No wheezes rales or rhonchi. Respirations even and unlabored lung sounds clear. HEART: Regular rate and rhythm without murmurs ABDOMEN: Soft, nontender, normal bowel sounds, no guarding. EXTREMITIES: Normal range of motion, no pitting edema. No cyanosis. NEUROLOGICAL: Cranial nerves grossly intact. Normal speech. Normal gait. PSYCH: Normal mood, normal affect. SKIN: Warm, Dry, normal turgor, no rashes or lesions noted Diagnostic Results Laboratory Results: Patient informed of negative rapid strep and negative rapid flu results. Pending strep culture. Pending Covid testing results. Patient provided instruc tions regarding Covid to include: As a person under investigation for Covid 19, the [place] department of Health and Human Services, division of public health advises you to adhere to the following guidance until your test results are reported to you. If your test result is positive, you will receive additional information from your provider and your local health department at that time. Remain at home until you are cleared by the health provider or public health authorities. Keep a log of visitors to your home, notify any visitors to your home of your isolation status. If you plan to move to a new address or leave the county, notify the local health department in your County. Call your doctor or seek care if you have an urgent medical need. Before seeking medical care, call ahead to get instructions from the provider before arriving at the medical office clinic or hospital. Notify them that you are being tested for the virus that causes Covid 19 so that arrangements can be made, as necessary, to prevent transmission to others in the healthcare setting. Next, notify the local health department in your county. If a medical emergency arises and you need to call 911, inform the first responders that you are being tested for the virus that causes Covid 19. Next, notify the local health department in your county. Patient Education/Counseling Counseling/Education: Patient presents with upper respiratory symptoms worrisome for possible Covid 19. Patient does not have emergency worring symptoms such as difficulty emily thing, shortness of breath, chest pain, pressure, confusion or cyanosis. Patient appears suitable for discharge. Patient instructed to follow-up with PCP. To ED for persistent or worsening symptoms. Patient's vital signs are stable and patient is nontoxic in appearance. Good return precautions have been discussed with patient, patient verbalized understanding and is agreeable with discharge plan of care at this time. RDC Discharge - Discharge Condition: Stable Disposition: Home; Selfcare
[2020-07-16 10:37] LABS: A TYPE INFLUENZA AG NEGATIVE (NEGATIVE); B INFLUENZA AG NEGATIVE (NEGATIVE)
--- OUTSIDE RECORDS SUMMARY | 2020-07-17 18:18 | XMS REPORT ---
:1980 [facility] [place] [address] [place] [address] Care Team Providers Name Role Phone PCP, PER PATIENT Primary Care Physician Unavailable SEAN BOWMAN Attending Clinician Unavailable Frank FIORE Attending Clinician Unavailable ROMULO FIORE Attending Clinician Unavailable Hany Attending Clinician Unavailable Giancarlo NOLAND Attending Clinician Unavailable Gt SEYMOUR Attending Clinician Unavailable Sal SHETTY Attending Clinician Unavailable Hany Attending Clinician Unavailable SEAN BOWMAN Admitting Clinician Unavailable Allergies, Adverse Reactions, Alerts Allergy Allergy Status Severity Reaction(s) Onset Inactive Treating C omments Name Type Date Date Clinician Infliximab Drug Active High Other (See Po ssible Allergy Comments) 6-20 inflix imab 00:00: -induced 00 autoimmu ne hepatiti s Dill Oil Drug Active High Swelling (Anethum Allergy -19 Graveolens 00:00: ) 00 Adalimumab Propensity Active In fusion to adverse -19 React ion reactions 00:00: 00 dill oil Allergy to Active Mild ANGIOEDEMA, ([id number] substance LIP AND 5-23 1) TONGUE 00:00: SWELLING 00 adalimumab Allergy to Active Mild Rash ([id number] substance 5-23 1) 00:00: 00 DILL OIL Drug Active U 2017-09 allergy - 00:00: 00 ADALIMUMAB Drug Active U 2017-09 allergy - 00:00: 00 PHENTERMIN Drug Active U Palpitations 2017-09 E allergy - 00:00: 00 DILL OIL Drug Inactive U 2017-09 allergy 0-05 00:00: 00 ADALIMUMAB Drug Inactive U 2017-09 allergy 0-05 00:00: 00 Dill Oil Allergy to Active Hives substance Humira Allergy to Active Rash substance Phentermin Allergy to Active Moderate Palpitations e substance Medications Ordered Filled Start Stop Current Ordering Indication Dosage Frequency Signature Comments Components Medication Medication Date Date Medication? Clinician (SIG) Name Name azaTHIOprin 2020- Yes 150mg Take 3 Take 3 e (IMURAN) 05-19 09-14 tablets tablets 50 mg 00:00: 23:59 (150 mg (150 mg tablet 00 :00 total) by total) by mouth mouth daily. daily. NIFEdipine Yes Valentino NIFEdipine ER 30 MG 05-16 Gt ER 30 MG Oral Tablet 12:22: Oral Extended 26 Tablet Release 24 Extended Hour Release 24 Hour TAKE 1 TABLET BY MOUTH EVERY DAY DIRECTED Quantity: 180 Refills: 0 Valentino Del Real MD Start : 0Active azaTHIOprin 2019- No 100mg Take 2 Take 2 e (IMURAN) 04-3014 tablets tablets 50 mg 00:00: 00:00 (100 mg (100 mg tablet 00 :00 total) by total) by mouth mouth daily. daily. Metoprolol Yes Valentino Metoprolol Succinate 03-28 Gt Succinate ER 25 MG 00:00: ER 25 MG Oral Tablet 00 Oral Extended Tablet Release 24 Extended Hour Release 24 Hour 1QD - TAKE ONE TABLET BY MOUTH EVERY DAY Quantity: 90 Refills: 3 Valentino Del Real MD Start : 0Active azaTHIOprin 2019- No 50mg Take 1 Take 1 e (IMURAN) 03-20 08-26 tablet (50 tabl et 50 mg 00:00: 00:00 mg total) (50 mg tablet 00 :00 by mouth total) by daily. mouth daily. predniSONE 2019- No 30mg Take 3 Take 3 (DELTASONE) 03-20 08-13 tablets tablet s 10 MG 00:00: 23:59 (30 mg (30 mg tablet 00 :00 total) by total) by mouth mouth daily for daily for 28 days. 28 days. ibuprofen No 800mg 800 mg, (MOTRIN) 6-20 Oral, tablet 800 11:35: Every 8 mg 29 hours PRN, pain,mild (1-3), pain,moder ate (4-6), Starting 02/23/20 at 1135
Give with Food or Milk
Ro utine gelatin Code/traum sponge,abso 02-22 a/sedation rb-porcine 10:48: 10:48 medication (GELFOAM) 00 :00 , Starting sponge 02/23/20 at 1048 lidocaine Code/traum (XYLOCAINE) 02-22 a/sedation 10 mg/mL (1 10:33: 10:33 medication %) 48 :48 , Starting injection 02/23/20 at 1033
Ro utine fentaNYL Intravenou (PF) 02-22 s, (SUBLIMAZE) 10:27: 10:47 Code/traum injection 09 :00 a/sedation medication , Starting 02/23/20 at 1027
Ro utine midazolam Code/traum (VERSED) 02-22 a/sedation injection 10:14: 10:14 medication 29 :29 , Starting 02/23/20 at 1014
Ro utine sodium Intravenou chloride 02-22 s, (NS) 0.9 % 10:00: 10:00 Code/traum infusion 00 :00 a/sedation continuous med, Starting 02/23/20 at 1000
Ro utine potassium 40meq 40 mEq, chloride 02-22 Oral, (KLOR-CON) 08:00: 09:00 Once, Sat CR tablet 00 :00 02/23/20 at 40 mEq 0800, For 1 dose
Ro utine levothyroxi No 225ug 225 mcg, ne 02-22 Oral, (SYNTHROID) 06:00: Daily tablet 225 00 (standard) mcg , First dose (after last modificati on) on 02/23/20 at 0600<br&gt ;Routine predniSONE 2019- No Take 3 Take 3 (DELTASONE) 02-22 07-16 tablets tablet s 20 MG 00:00: 00:00 (60 mg (60 mg tablet 00 :00 total) total) once daily once for 7 daily for days, then 7 days, take 2 then take tablets 2 tablets (40 mg (40 mg total) total) once daily once until told daily to taper until more told to taper more ibuprofen 2019- No 600mg 600 mg, (MOTRIN) 02-21 Oral, tablet 600 22:00: 22:06 Once, Fri mg 00 :02/22/20 at 2200, For 1 dose
Gi ve with Food or Milk
Ro utine *pt home No 500mg 500 mg, med* 02-21 Oral, 2 ranolazine 12:00: times a (RANEXA) 12 00 day hr tablet (standard) 500 mg , First dose on Tue02/22/20 at 1200
Us e pt's home supplied medication
Routin e losartan No 50mg 50 mg, (COZAAR) 02-21 Oral, 2 tablet 50 09:00: times a mg 00 day (standard) , First dose on Tue02/22/20 at 0900
Ho ld for SBP < 90 and/or MAP < 70 and/or potassium in the past 24 hours > 5.5 and/or SCr in the past 24 hours > 2.5
Rou evy chlorthalid No 25mg 25 mg, one 02-21 Oral, (HYGROTON) 09:00: Daily tablet 25 00 (standard) mg , First dose on Tue02/22/20 at 0900
Ma y Cause [employer] t[employer].
Routine levothyroxi No 25ug 25 mcg, ne 02-21 Oral, (SYNTHROID) 09:00: 18:37 Daily tablet 25 00 :00 (standard) mcg , First dose on Tue02/22/20 at 0900
Ro utine levothyroxi 2019- No 200ug 200 mcg, ne 02-21 Oral, (SYNTHROID) 09:00: 18:37 Daily tablet 200 00 :01 (standard) mcg , First dose on Tue02/22/20 at 0900
Ro utine potassium 2019-2019- No 40meq 40 mEq, chloride 02-21 Oral, (KLOR-CON) 07:00: 07:14 Once, Fri CR tablet 00 :02/22/20 at 40 mEq 0700, For 1 dose
Ro utine ibuprofen 2020-0 2020- No 600mg 600 mg, (MOTRIN) 02-21- Oral, tablet 600 01:00: 01:01 Once, Fri mg 00 :00 02/22/20 at 0100, For 1 dose
Gi ve with Food or Milk
Ro utine hydroxyzine 2019-0 No 25mg 25 mg, (ATARAX) 02-21 Oral, capsule/tab 00:22: Every 6 let 25 mg 38 hours PRN, itching, Starting Tue02/22/20 at 0022
Ro utine aluminum-ma 2019-0 No 30mL 30 mL, gnesium 02-20 Oral, hydroxide-s 23:41: Every 4 imethicone 43 hours PRN, (MAALOX indigestio MAX) n, 80-80-8 heartburn, mg/mL oral Starting suspension Alba 02/21/20 at 2341
Ro utine ondansetron 2019-0 No 4mg 4 mg, (ZOFRAN-ODT 02-20 Oral, ) 23:41: Every 6 disintegrat 43 hours PRN, ing tablet nausea, 4 mg vomiting, Starting Alba 02/21/20 at 2341
Ro utine polyethylen 2019-0 No 17g 17 g, e glycol -18 Oral, (MIRALAX) 23:41: Daily PRN, packet 17 g 43 constipati on, Starting Alba 02/21/20 at 2341
Mi x in 8 ounces of appropriat e fluid prior to administra tion
Ro utine melatonin 2019-0 No 3mg 3 mg, tablet 3 mg -18 Oral, 23:41: Nightly 43 PRN, sleep, Starting Alba 02/21/20 at 2341
Ro utine Ranolazine 2019-0 Yes Valentino Ranolazine ER 500 MG 4-30 Gt ER 500 MG Oral Tablet 18:02: Oral Extended 38 Tablet Release 12 Extended Hour Release 12 Hour TAKE 1 TABLET BY MOUTH TWICE DAILY Quantity: 180 Refills: 3 Valentino Del Real MD Start : 0Active Chlorthalid 2018-09 Yes Valentino Chlorthali one 25 MG 2-02 Gt done 25 MG Oral Tablet 00:00: Oral 00 Tablet Take 1 tablet by mouth daily Quantity: 90 Refills: 3 Valentino Del Real MD Start : 06-Aug-2019 Active Losartan 2018- Yes Valentino Losartan Potassium 1-06 Gt Potassium 50 MG Oral 00:00: 50 MG Oral Tablet 00 Tablet TAKE 1 TABLET BY MOUTH TWICE DAILY Quantity: 180 Refills: 3 Valentino Del Real MD Start : 11-Jul-2019 Active NIFEdipine 2018- No Valentino NIFEdipine ER 30 MG 0-30 Gt ER 30 MG Oral Tablet 00:00: Oral Extended 00 Tablet Release 24 Extended Hour Release 24 Hour TAKE 1 TABLET BY MOUTH DAILY DIRECTED Quantity: 45 Refills: 3 Valentino Del Real MD Start : 9Active Premarin 2018- Yes Premarin 0.625 MG/GM 6-24 0.625 Vaginal 00:00: MG/GM Cream 00 Vaginal Cream APPLY A PEASIZED AMOUNT AT THE OPENING OF THE VAGINA TWICE WEEKLY Quantity: 30 Refills: 0 Start : 9Active Prempro 2018- Yes Prempro 0.625-2.5 5-23 0.625-2.5 MG Oral 00:00: MG Oral Tablet 00 Tablet TK 1 T PO QD Quantity: 28 Refills: 0 Start : 9Active Nitroglycer Yes Valentino Nitroglyce in 0.4 MG 4-12 Gt rin 0.4 MG Sublingual 00:00: Sublingual Tablet 00 Tablet Sublingual Sublingual DISSOLVE 1 TAB UNDER TONGUE NEEDED FOR CHEST PAIN. MAY REPEAT EVERY 5 MIN UP TO 3 TABS IF NO RELIEF CALL 911. Quantity: 1 Refills: 3 Valentino Del Real MD Start : 9Active 25 Tablet Bottle Sertraline 2018- Yes Sertraline HCl - 50 MG 1-21 HCl - 50 Oral Tablet 00:00: MG Oral 00 Tablet TK 1 T PO QD Quantity: 30 Refills: 0 Start : 9Active Levothyroxi 2017-09 Yes Levothyrox ne Sodium 2-19 ine Sodium 200 MCG 00:00: 200 MCG Oral Tablet 00 Oral Tablet TK 1 T PO QD Quantity: 30 Refills: 0 Start : 8Active Folic Acid 2017-09 Yes Folic Acid 1 MG Oral 0-30 1 MG Oral Tablet 00:00: Tablet TK 00 2 TS PO D Quantity: 60 Refills: 0 Start : 8Active Sertraline 2017-09 Yes Sertraline HCl - 100 0-05 HCl - 100 MG Oral 00:00: MG Oral Tablet 00 Tablet TK 1 T PO QD Quantity: 30 Refills: 0 Start : 09-Jun-2018 Active Atorvastati 2017-09 Yes Atorvastat n Calcium 0-05 in Calcium 20 MG Oral 00:00: 20 MG Oral Tablet 00 Tablet TK 1 T PO QD Quantity: 30 Refills: 0 Start : 09-Jun-2018 Active azathioprin No 2 Q1D azathiopri e 50 mg ne 50 mg tablet Take tablet 2 tablets Take 2 every day tablets by oral every day route. by oral route. Amlodipine Yes 10 Once Per Besylate Day Aspirin Yes 81 Once Per Day Atorvastati Yes 20 At Bedtime n Calcium Folic Acid Yes 2 Once Per Day Leflunomide Yes 20 Once Per Day Levothyroxi Yes 200 Before ne Sodium Breakfast Loratadine Yes 10 Once Per Day Ranolazine Yes 500 Twice Per Day Sertraline Yes 150 Once Per Hcl Day Tofacitinib Yes 11 Once Per Citrate Day chlorthalid No chlorthali one 25 mg done 25 mg tablet Take tablet 1 tablet Take 1 every day tablet by oral every day route for by oral 30 days. route for 30 days. Claritin 10 No 1 Q1D Claritin mg tablet 10 mg Take 1 tablet tablet Take 1 every day tablet by oral every day route. by oral route. Humalog No Humalog KwikPen KwikPen (U-100) (U-100) Insulin 100 Insulin unit/mL 100 subcutaneou unit/mL s 42 AM 48 subcutaneo Lunch 38 us 42 AM Supper 48 Lunch 38 Supper Lantus No 46unit( Q1D Lantus Solostar s) Solostar U-100 U-100 Insulin 100 Insulin unit/mL (3 100 mL) unit/mL (3 subcutaneou mL) s pen subcutaneo Inject 46 us pen units every Inject 46 day by units subcutaneou every day s route. by subcutaneo us route. levothyroxi No levothyrox ne 200 mcg ine 200 tablet Take mcg tablet 1 tablet Take 1 every day tablet by oral every day route for by oral 30 days. route for 30 days. metoprolol No 1 Q1D metoprolol succinate succinate ER 25 mg ER 25 mg tablet,exte tablet,ext nded ended release 24 release 24 hr Take 1 hr Take 1 tablet tablet every day every day by oral by oral route for route for 30 days. 30 days. nifedipine No 1 Q1D nifedipine ER 30 mg ER 30 mg tablet,exte tablet,ext nded ended release release Take 1 Take 1 tablet tablet every day every day by oral by oral route. route. potassium No 1packet BID potassium chloride 20 (s) chloride mEq oral 20 mEq packet Take oral 1 packet packet twice a day Take 1 by oral packet route. twice a day by oral route. prednisone No 1 Q1D prednisone 20 mg 20 mg tablet Take tablet 1 tablet Take 1 every day tablet by oral every day route. by oral route. ranolazine No ranolazine ER 500 mg ER 500 mg tablet,exte tablet,ext nded ended release,12 release,12 hr Take 1 hr Take 1 tablet tablet twice a day twice a by oral day by route for oral route 30 days. for 30 days. ranolazine Yes 500mg Take 500 Take 5 00 (RANEXA) mg by mg by 500 MG 12 mouth Two mouth Two hr tablet (2) times (2) ti mes a day. a day. losartan Yes 50mg Take 50 mg Take 5 0 (COZAAR) 50 by mouth mg by MG tablet Two (2) mouth Tw o times a (2) times day. a day. chlorthalid Yes 25mg Take 25 mg Denys e 25 one by mouth mg by (HYGROTON) daily. mouth 25 MG daily. tablet levothyroxi Yes 200ug Take 200 Take 200 ne mcg by mcg by (SYNTHROID) mouth mouth 200 MCG daily. daily. tablet levothyroxi Yes 25ug Take 25 Take 2 5 ne mcg by mcg by (SYNTHROID) mouth mouth 25 MCG daily. daily. tablet trazodone No 1 Q1D trazodone 100 mg 100 mg tablet Take tablet 1 tablet Take 1 every day tablet by oral every day route as by oral needed. route as needed. atorvastati No 10mg Take 10 mg Denys e 10 n (LIPITOR) by mouth mg by 10 MG daily. mouth tablet daily. inFLIXimab- No 5mg/kg Infuse 5 Infu se 5 dyyb 100 mg mg/kg into mg/ kg SolR a venous into a catheter. venous catheter. cyclobenzap No 1 TID cyclobenza rine 10 mg jessie 10 tablet Take mg tablet 1 tablet 3 Take 1 times a day tablet 3 by oral times a route as day by needed for oral route 30 days. as needed for 30 days. Glucagon No Glucagon Emergency Emergency Kit Kit (human-morgan (human-rec mb) 1 mg omb) 1 mg solution solution for for injection injection Use as Use as directed directed for for hypoglycemi hypoglycem a ia Humalog No Humalog U-100 U-100 Insulin 100 Insulin unit/mL 100 subcutaneou unit/mL s solution subcutaneo Use up to us 200 units solution daily via Use up to insulin 200 units pump daily via insulin pump losartan 50 No 1 Q1D losartan mg tablet 50 mg Take 1 tablet tablet Take 1 every day tablet by oral every day route for by oral 30 days. route for 30 days. prednisone No 1.5 Q1D prednisone 10 mg 10 mg tablet Take tablet 1.5 tablets Take 1.5 every day tablets by oral every day route for by oral 28 days. route for 28 days. Arava 20 MG Yes Arava 20 Oral Tablet MG Oral Tablet Refills: 0 Active Aspirin 81 Yes Aspirin 81 MG TABS MG TABS Refills: 0 Active Claritin 10 Yes Claritin MG Oral 10 MG Oral Tablet Tablet Refills: 0 Active predniSONE Yes predniSONE 5 MG Oral 5 MG Oral Tablet Tablet Refills: 0 Active Problems Condition Condition Condition Status Onset Resolution Last Treatin g Comments Name Details Category Date Date Treatment Clinician Date Steroid-ind Steroid-ind Problem Active 2019-09 uced uced 0-27 diabetes Diabetes 00:00: 00 Long-term Long-term Problem Active current use Current Use 05-13 of insulin of Insulin 00:00: 00 Migraine Migraine Problem Active 05-08 00:00: 00 Heart Heart Problem Active disease Disease 05-08 00:00: 00 Disease of Disease of Problem Active liver Liver 05-08 00:00: 00 Essential Essential Problem Active hypertensio Hypertensio 04-30 n n 00:00: 00 Pleurisy Pleurisy Problem Active 04-30 00:00: 00 Rheumatoid Rheumatoid Problem Active 2019- arthritis Arthritis 04-30 00:00: 00 Acquired Acquired Problem Active hypothyroid Hypothyroid 04-30 ism ism 00:00: 00 Diabetes Diabetes Problem Active mellitus Mellitus 04-30 00:00: 00 Mixed Mixed Problem Active hyperlipide Hyperlipide 8-26 shauan shauna 00:00: 00 Hypothyroid Hypothyroid [id number] Active 2020-02-22 ism ism 02-21 02:03:12 00:00: 00 Hypertensio Hypertensio [id number] Active 2020-02-22 n n 02-21 02:03:12 00:00: 00 Rheumatoid Rheumatoid [id number] Active 2020-02-22 arthritis arthritis 02-21 02:03:14 00:00: 00 Acute liver Acute liver [id number] Active 2020-02-22 failure failure 02-21 02:03:10 00:00: 00 Request for Request for Problem Active sterilizati sterilizati on on Nausea, Nausea, Problem Active vomiting, vomiting, and and diarrhea diarrhea Not on file Not on file [id number] Chest pain Chest pain Problem Active Palpitation Palpitation Problem Active s s Procedures Procedure Date / Time Performed Performing Clinician Devic e OFFICE/OUTPATIENT VISIT EST 2020-04-14 15:15:00 IR BIOPSY LIVER PERCUTANEOUS 2020-02-23 11:00:00 Liv Nichols COMPREHENSIVE METABOLIC PANEL 2020-02-23 05:54:00 Jovanni Mario BILIRUBIN, DIRECT 2020-02-23 05:54:00 Joel Manzo MAGNESIUM 2020-02-23 05:54:00 Jovanni Mario CBC W/ AUTO DIFF 2020-02-23 05:54:00 Jovanni Mario PROTIME-INR 2020-02-23 05:54:00 Jovanni Mario US OUTSIDE FILM FOR CONTINUED 2020-02-22 06:15:50 Boo Bowman am COMPREHENSIVE METABOLIC PANEL 2020-02-22 06:04:00 Jovanni Mario MAGNESIUM 2020-02-22 06:04:00 Jovanni Mario PROTIME-INR 2020-02-22 06:04:00 Jovanni Mario CBC W/ AUTO DIFF 2020-02-22 06:03:00 Jovanni Mario HEPATITIS A IGG 2020-02-22 06:03:00 Jovanni Mario COMPREHENSIVE METABOLIC PANEL 2020-02-22 00:02:00 Jovanni Mario BILIRUBIN, DIRECT 2020-02-22 00:02:00 Jovanni Mario FERRITIN 2020-02-22 00:02:00 Jovanni Mario IGG 2020-02-22 00:02:00 Jovanni Mario MAGNESIUM 2020-02-22 00:02:00 Jovanni Mario T4, FREE 2020-02-22 00:02:00 Jovanni Mario TSH 2020-02-22 00:02:00 Jovanni Mario C-REACTIVE PROTEIN 2020-02-22 00:02:00 Jovanni Mario RHEUMATOID FACTOR, QUANT 2020-02-22 00:02:00 Jovanni Mario FIBRINOGEN 2020-02-22 00:02:00 Jovanni Mario PROTIME-INR 2020-02-22 00:02:00 Jovanni Mario APTT 2020-02-22 00:02:00 Jovanni Mario CERULOPLASMIN 2020-02-22 00:02:00 Jovanni Mario TYPE AND SCREEN 2020-02-22 00:01:00 Jovanni Mario CBC W/ AUTO DIFF 2020-02-22 00:01:00 Jovanni Mario SEDIMENTATION RATE, MANUAL 2020-02-22 00:01:00 Jovanni Mario SLIDE REVIEW 2020-02-22 00:01:00 Jovanni Mario OFFICE/OUTPATIENT VISIT EST 2019-09-06 15:45:00 OFFICE/OUTPATIENT VISIT EST 2019-04-20 14:15:00 OFFICE/OUTPATIENT VISIT EST 2018-09-25 16:15:00 Cardiac Catheterization 2018-09-05 00:00:00 OFFICE/OUTPATIENT VISIT [facility] 2018-06-09 09:00:00 Procedures not documented Other Section Results Test Description Test Time Test Comments Text Results Atomic Results Result Comments Hemoglobin A1C (Performed Elsewhere)\S\ 2020-05-13 11:35:00 Test Item Value Reference Range Comments HgbA1C (Performed Elsewhere) (test code = 4548-4) 12.1 % 4-5.6 IR Biopsy Liver Percutaneous (02/23/2020 11:00 AM EDT)2020-02-23 11:11:18IR Biopsy Liver Percutaneous (02/23/2020 11:00 AM EDT)SpecimenImpressionsPerformed AtSuccessful ultrasound-guided percutaneous liver biopsies with 2 core samples.[facility] RADNarrativePerformed AtEXAM: PERCUTANEOUS LIVER BIOPSY - ULTRASOUND-GUIDEDDATE: 02/23/2020 11:00 AMACCESSION: [id number]: 11:11 AMINTERPRETATION LOCATION: [facility] CLINICAL INDICATION: 39 years old Female: acuteliver failure CONSENT: Informed consent was obtained from the patient including a discussion of the alternatives, benefits, and risks including but not limited to infection, bleeding, need for additional procedure, and/or ICU admission. ULTRASOUND GUIDED LIVER BIOPSY: With the patient in the supine position, the right upper quadrant of the abdomen was prepped and draped using all elements of maximal sterile barrier technique. A limited ultrasound examination of the liver was performed to identify a suitable site for biopsy. A skin entry site was selected and anesthetized with 1% lidocaine alongthe right anterior axillary line. Under ultrasound guidance, a 17-G coaxial needle was carefully placed into the liver as to avoid large vessels. Through the needle, a 15 cm, 18-G biopsy needle was inserted and multiple biopsies were performed. The specimens were subsequently labeled and sent to pathology. The biopsy track was filled with gel-foam slurry and the coaxial needle was removed. A limited ultrasound exam after the biopsies revealed no hematoma or doppler evidence of active bleeding. A sterile dressing was placed over the puncture site. SEDATION: I personally spent 22 minutes, continuously monitoring the patient [id number] during the administration of moderate sedation. Radiology nurse was present for the duration of the procedure to assist in patient monitoring. Pre and Post Sedation activities have been reviewed. Dr. Nick Lawrence was present for and supervised the entire procedure. [facility] RADProcedure NoteInterface, Rad Results In - 02/23/2020 11:17 AM EDTEXAM: PERCUTANEOUS LIVER BIOPSY - ULTRASOUND-GUIDED DATE: 02/23/2020 11:00 AM DICTATED: 02/23/2020 11:11 AM INTERPRETATION LOCATION: [facility] CLINICAL INDICATION: 39 years old Female: acute liver failure CONSENT: Informed consent was obtained from the patient including a discussion ofthe alternatives, benefits, and risks including but not limited to infection, bleeding, need for additional procedure, and/or ICU admission. ULTRASOUND GUIDED LIVER BIOPSY: With the patient in the supine position, the right upper quadrant of the abdomen was prepped and draped using all elements of maximal sterile barrier technique. A limited ultrasound examination of the liver was performed to identify a suitable site for biopsy. A skin entry site was selected and anesthetized with 1% lidocaine along the right anterior axillary line. Under ultrasound guidance, a 17-G coaxial needle was carefully placed into the liver as to avoid large vessels. Through the needle, a 15 cm, 18-G biopsy needle was inserted and multiple biopsies were performed. The specimens were subsequently labeled and sent to pathology. The biopsy track was filled with gel-foam slurry and the coaxial needle was removed. A limitedultrasound exam after the biopsies revealed no hematoma or doppler evidence of active bleeding. A sterile dressing was placed over the puncture site. SEDATION: I personally spent 22 minutes, continuously monitoring the patient [id number] during the administration of moderate sedation. Radiology nurse was present for the duration of the procedure to assist in patient monitoring. Pre and Post Sedation activities have been reviewed. Dr. Nick Lawrence was present for and supervised the entire procedure. IMPRESSION: Successful ultrasound-guided percutaneous liver biopsies with 2 core samples.PerformingOrganizationAddressCity/State/ZipcodePhone [facility] [id number] [facility].[place], [place] [id number] metabolic panel (02/23/2020 5:54 AM EDT)2020-02-23 05:54:00 Test Item Value Reference Range Comments Sodium (test code = Sodium) 139 mmol/L 135 - 145 mmol/L Potassium (test code = Potassium) 3.4 mmol/L 3.5 - 5.0 mmol /L Chloride (test code = Chloride) 106 mmol/L 98 - 107 mmol/L Anion Gap (test code = Anion Gap) 10 mmol/L 7 - 15 mmol/L CO2 (test code = CO2) 23.0 mmol/L 22.0 - 30.0 mmol/L BUN (test code = BUN) 10 mg/dL 7 - 21 mg/dL Creatinine (test code = Creatinine) 0.82 mg/dL 0.60 - 1.00 mg/dL BUN/Creatinine Ratio (test code = 12 BUN/Creatinine Ratio) EGFR CKD-EPI Non-, Female >90 >=60 m L/min/1.73m2 (test code = EGFR CKD-EPI Non-, Female) EGFR CKD-EPI , Female (test >90 >=60 mL/min/1.73m2 code = EGFR CKD-EPI , Female) Glucose (test code = Glucose) 83 mg/dL 70 - 179 mg/dL Calcium (test code = Calcium) 8.9 mg/dL 8.5 - 10.2 mg/dL Albumin (test code = Albumin) 2.9 g/dL 3.5 - 5.0 g/dL Total Protein (test code = Total Protein) 7.6 g/dL 6.5 - 8.3 g/dL Total Bilirubin (test code = Total Bilirubin) 7.2 mg/dL 0. 0 - 1.2 mg/dL AST (test code = AST) 1995 U/L 14 - 38 U/L ALT (test code = ALT) 626 U/L <35 U/L Alkaline Phosphatase (test code = Alkaline 288 U/L 38 - 126 U/L Phosphatase) PT-INR (02/23/2020 5:54 AM EDT)2020-02-23 05:54:00 Test Item Value Reference Range Comments PT (test code = PT) 12.8 sec 10.2 - 13.1 sec INR (test code = INR) 1.11 Magnesium Level (02/23/2020 5:54 AM EDT)2020-02-23 05:54:00 Test Item Value Reference Range Comments Magnesium (test code = Magnesium) 1.8 mg/dL 1.6 - 2.2 mg/d L Bilirubin, Direct (02/23/2020 5:54 AM EDT)2020-02-23 05:54:00 Test Item Value Reference Range Comments Bilirubin, Direct (test code = Bilirubin, 6.10 mg/dL 0.00 - 0.40 mg/dL Direct) CBC w/ Differential (02/23/2020 5:54 AM EDT)2020-02-23 05:54:00 Test Item Value Reference Range Comments WBC (test code = WBC) 4.8 10*9/L 4.5 - 11.0 10*9/L RBC (test code = RBC) 3.77 10*12/L 4.00 - 5.20 10*12/L HGB (test code = HGB) 10.1 g/dL 12.0 - 16.0 g/dL HCT (test code = HCT) 32.2 % 36.0 - 46.0 % MCV (test code = MCV) 85.3 fL 80.0 - 100.0 fL MCH (test code = MCH) 26.7 pg 26.0 - 34.0 pg MCHC (test code = MCHC) 31.3 g/dL 31.0 - 37.0 g/dL RDW (test code = RDW) 20.1 % 12.0 - 15.0 % MPV (test code = MPV) 10.0 fL 7.0 - 10.0 fL Platelet (test code = Platelet) 223 10*9/L 150 - 440 10*9/L Variable HGB Concentration (test code = Slight Not Pres ent Variable HGB Concentration) Neutrophils % (test code = Neutrophils %) 45.3 % Lymphocytes % (test code = Lymphocytes %) 36.4 % Monocytes % (test code = Monocytes %) 8.6 % Eosinophils % (test code = Eosinophils %) 1.3 % Basophils % (test code = Basophils %) 0.8 % Absolute Neutrophils (test code = Absolute 2.2 10*9/L 2.0 - 7.5 10*9/L Neutrophils) Absolute Lymphocytes (test code = Absolute 1.7 10*9/L 1.5 - 5.0 10*9/L Lymphocytes) Absolute Monocytes (test code = Absolute 0.4 10*9/L 0.2 - 0 .8 10*9/L Monocytes) Absolute Eosinophils (test code = Absolute 0.1 10*9/L 0.0 - 0.4 10*9/L Eosinophils) Absolute Basophils (test code = Absolute 0.0 10*9/L 0.0 - 0 .1 10*9/L Basophils) Large Unstained Cells (test code = Large 8 % 0 - 4 % Unstained Cells) Microcytosis (test code = Microcytosis) Slight Not Pres ent Macrocytosis (test code = Macrocytosis) Slight Not Pres ent Anisocytosis (test code = Anisocytosis) Moderate Not Pres ent Hypochromasia (test code = Hypochromasia) Marked Not Pr esent Comprehensive metabolic panel (02/22/2020 6:04 AM EDT)2020-02-22 06:04:00 Test Item Value Reference Range Comments Sodium (test code = Sodium) 143 mmol/L 135 - 145 mmol/L Potassium (test code = Potassium) 3.3 mmol/L 3.5 - 5.0 mmol /L Chloride (test code = Chloride) 106 mmol/L 98 - 107 mmol/L Anion Gap (test code = Anion Gap) 11 mmol/L 7 - 15 mmol/L CO2 (test code = CO2) 26.0 mmol/L 22.0 - 30.0 mmol/L BUN (test code = BUN) 10 mg/dL 7 - 21 mg/dL Creatinine (test code = Creatinine) 0.86 mg/dL 0.60 - 1.00 mg/dL BUN/Creatinine Ratio (test code = 12 BUN/Creatinine Ratio) EGFR CKD-EPI Non-, 87 mL/min/1.73m2 >=60 mL/min/ 1.73m2 Female (test code = EGFR CKD-EPI Non-, Female) EGFR CKD-EPI , Female >90 >=60 mL/mi n/1.73m2 (test code = EGFR CKD-EPI , Female) Glucose (test code = Glucose) 97 mg/dL 70 - 179 mg/dL Calcium (test code = Calcium) 8.8 mg/dL 8.5 - 10.2 mg/dL Albumin (test code = Albumin) 2.9 g/dL 3.5 - 5.0 g/dL Total Protein (test code = Total 7.4 g/dL 6.5 - 8.3 g/dL Protein) Total Bilirubin (test code = Total 7.5 mg/dL 0.0 - 1.2 mg/ dL Bilirubin) AST (test code = AST) 1943 U/L 14 - 38 U/L ALT (test code = ALT) 617 U/L <35 U/L Alkaline Phosphatase (test code = 297 U/L 38 - 126 U/L Alkaline Phosphatase) PT-INR (02/22/2020 6:04 AM EDT)2020-02-22 06:04:00 Test Item Value Reference Range Comments PT (test code = PT) 12.6 sec 10.2 - 13.1 sec INR (test code = INR) 1.09 Magnesium Level (02/22/2020 6:04 AM EDT)2020-02-22 06:04:00 Test Item Value Reference Range Comments Magnesium (test code = Magnesium) 2.0 mg/dL 1.6 - 2.2 mg/d L Hepatitis A IgG (02/22/2020 6:03 AM EDT)2020-02-22 06:03:00 Test Item Value Reference Range Comments Hep A IgG (test code = Hep A IgG) Reactive Nonreactive CBC w/ Differential (02/22/2020 6:03 AM EDT)2020-02-22 06:03:00 Test Item Value Reference Range Comments WBC (test code = WBC) 5.0 10*9/L 4.5 - 11.0 10*9/L RBC (test code = RBC) 3.79 10*12/L 4.00 - 5.20 10*12/L HGB (test code = HGB) 9.8 g/dL 12.0 - 16.0 g/dL HCT (test code = HCT) 32.5 % 36.0 - 46.0 % MCV (test code = MCV) 85.8 fL 80.0 - 100.0 fL MCH (test code = MCH) 25.8 pg 26.0 - 34.0 pg MCHC (test code = MCHC) 30.0 g/dL 31.0 - 37.0 g/dL RDW (test code = RDW) 19.5 % 12.0 - 15.0 % MPV (test code = MPV) 10.3 fL 7.0 - 10.0 fL Platelet (test code = Platelet) 258 10*9/L 150 - 440 10*9/L Variable HGB Concentration (test code = Slight Not Pres ent Variable HGB Concentration) Neutrophils % (test code = Neutrophils %) 49.5 % Lymphocytes % (test code = Lymphocytes %) 31.1 % Monocytes % (test code = Monocytes %) 12.1 % Eosinophils % (test code = Eosinophils %) 2.0 % Basophils % (test code = Basophils %) 0.5 % Absolute Neutrophils (test code = Absolute 2.5 10*9/L 2.0 - 7.5 10*9/L Neutrophils) Absolute Lymphocytes (test code = Absolute 1.6 10*9/L 1.5 - 5.0 10*9/L Lymphocytes) Absolute Monocytes (test code = Absolute 0.6 10*9/L 0.2 - 0 .8 10*9/L Monocytes) Absolute Eosinophils (test code = Absolute 0.1 10*9/L 0.0 - 0.4 10*9/L Eosinophils) Absolute Basophils (test code = Absolute 0.0 10*9/L 0.0 - 0 .1 10*9/L Basophils) Large Unstained Cells (test code = Large 5 % 0 - 4 % Unstained Cells) Microcytosis (test code = Microcytosis) Slight Not Pres ent Anisocytosis (test code = Anisocytosis) Moderate Not Pres ent Hypochromasia (test code = Hypochromasia) Marked Not Pr esent Comprehensive metabolic panel (02/22/2020 12:02 AM EDT)2020-02-22 00:02:00 Test Item Value Reference Range Comments Sodium (test code = Sodium) 139 mmol/L 135 - 145 mmol/L Potassium (test code = Potassium) 3.4 mmol/L 3.5 - 5.0 mmol /L Chloride (test code = Chloride) 105 mmol/L 98 - 107 mmol/L Anion Gap (test code = Anion Gap) 9 mmol/L 7 - 15 mmol/L CO2 (test code = CO2) 25.0 mmol/L 22.0 - 30.0 mmol/L BUN (test code = BUN) 9 mg/dL 7 - 21 mg/dL Creatinine (test code = Creatinine) 0.94 mg/dL 0.60 - 1.00 mg/dL BUN/Creatinine Ratio (test code = 10 BUN/Creatinine Ratio) EGFR CKD-EPI Non-, 78 mL/min/1.73m2 >=60 mL/min/ 1.73m2 Female (test code = EGFR CKD-EPI Non-, Female) EGFR CKD-EPI , Female 90 mL/min/1.73m2 >=60 mL/m in/1.73m2 (test code = EGFR CKD-EPI , Female) Glucose (test code = Glucose) 90 mg/dL 70 - 179 mg/dL Calcium (test code = Calcium) 9.2 mg/dL 8.5 - 10.2 mg/dL Albumin (test code = Albumin) 3.2 g/dL 3.5 - 5.0 g/dL Total Protein (test code = Total 8.0 g/dL 6.5 - 8.3 g/dL Protein) Total Bilirubin (test code = Total 7.4 mg/dL 0.0 - 1.2 mg/ dL Bilirubin) AST (test code = AST) 1907 U/L 14 - 38 U/L ALT (test code = ALT) 621 U/L <35 U/L Alkaline Phosphatase (test code = 309 U/L 38 - 126 U/L Alkaline Phosphatase) PT-INR (02/22/2020 12:02 AM EDT)2020-02-22 00:02:00 Test Item Value Reference Range Comments PT (test code = PT) 12.1 sec 10.2 - 13.1 sec INR (test code = INR) 1.05 aPTT (02/22/2020 12:02 AM EDT)2020-02-22 00:02:00 Test Item Value Reference Range Comments APTT (test code = APTT) 33.1 sec 25.9 - 39.5 sec Heparin Correlation (test code = Heparin 0.2 Correlation) Magnesium Level (02/22/2020 12:02 AM EDT)2020-02-22 00:02:00 Test Item Value Reference Range Comments Magnesium (test code = Magnesium) 1.8 mg/dL 1.6 - 2.2 mg/d L Ceruloplasmin (02/22/2020 12:02 AM EDT)2020-02-22 00:02:00 Test Item Value Reference Range Comments Ceruloplasmin (test code = Ceruloplasmin) 29.7 mg/dL 15.0 - 52.0 mg/dL Fibrinogen (02/22/2020 12:02 AM EDT)2020-02-22 00:02:00 Test Item Value Reference Range Comments Fibrinogen (test code = Fibrinogen) 333 mg/dL 177 - 386 mg /dL Rheumatoid Factor (02/22/2020 12:02 AM EDT)2020-02-22 00:02:00 Test Item Value Reference Range Comments Rheumatoid Factor (test code = Rheumatoid Factor) <8.6 0.0 - 15.0 IU/mL C-reactive protein (02/22/2020 12:02 AM EDT)2020-02-22 00:02:00 Test Item Value Reference Range Comments CRP (test code = CRP) 39.1 mg/L <10.0 mg/L Bilirubin, Direct (02/22/2020 12:02 AM EDT)2020-02-22 00:02:00 Test Item Value Reference Range Comments Bilirubin, Direct (test code = Bilirubin, 6.00 mg/dL 0.00 - 0.40 mg/dL Direct) IgG (02/22/2020 12:02 AM EDT)2020-02-22 00:02:00 Test Item Value Reference Range Comments Total IgG (test code = Total IgG) 2407 mg/dL 600-1,700 mg/d L Ferritin (02/22/2020 12:02 AM EDT)2020-02-22 00:02:00 Test Item Value Reference Range Comments Ferritin (test code = Ferritin) 1550.0 ng/mL 3.0 - 151.0 ng/m L TSH (02/22/2020 12:02 AM EDT)2020-02-22 00:02:00 Test Item Value Reference Range Comments TSH (test code = TSH) 12.450 uIU/mL 0.600 - 3.300 uIU/mL T4, Free (02/22/2020 12:02 AM EDT)2020-02-22 00:02:00 Test Item Value Reference Range Comments Free T4 (test code = Free T4) 1.56 ng/dL 0.71 - 1.40 ng/dL Type and Screen (02/22/2020 12:01 AM EDT)2020-02-22 00:01:00 Test Item Value Reference Range Comments Check Type (test code = Check Type) Needed Type Check ABO Grouping (test code = ABO Grouping) O POS Antibody Screen (test code = Antibody NEG Screen) CBC w/ Differential (02/22/2020 12:01 AM EDT)2020-02-22 00:01:00 Test Item Value Reference Range Comments Results Verified by Slide Scan (test code Slide Reviewed = Results Verified by Slide Scan) WBC (test code = WBC) 5.8 10*9/L 4.5 - 11.0 10*9/L RBC (test code = RBC) 3.72 10*12/L 4.00 - 5.20 10*12/L HGB (test code = HGB) 10.0 g/dL 12.0 - 16.0 g/dL HCT (test code = HCT) 31.8 % 36.0 - 46.0 % MCV (test code = MCV) 85.5 fL 80.0 - 100.0 fL MCH (test code = MCH) 27.0 pg 26.0 - 34.0 pg MCHC (test code = MCHC) 31.5 g/dL 31.0 - 37.0 g/dL RDW (test code = RDW) 19.9 % 12.0 - 15.0 % MPV (test code = MPV) 9.2 fL 7.0 - 10.0 fL Platelet (test code = Platelet) 203 10*9/L 150 - 440 10*9/L Variable HGB Concentration (test code = Slight Not Pres ent Variable HGB Concentration) Neutrophils % (test code = Neutrophils %) 42.3 % Lymphocytes % (test code = Lymphocytes %) 36.8 % Monocytes % (test code = Monocytes %) 11.2 % Eosinophils % (test code = Eosinophils %) 1.5 % Basophils % (test code = Basophils %) 1.0 % Absolute Neutrophils (test code = 2.5 10*9/L 2.0 - 7.5 10*9 /L Absolute Neutrophils) Absolute Lymphocytes (test code = 2.1 10*9/L 1.5 - 5.0 10*9 /L Absolute Lymphocytes) Absolute Monocytes (test code = Absolute 0.7 10*9/L 0.2 - 0 .8 10*9/L Monocytes) Absolute Eosinophils (test code = 0.1 10*9/L 0.0 - 0.4 10*9 /L Absolute Eosinophils) Absolute Basophils (test code = Absolute 0.1 10*9/L 0.0 - 0 .1 10*9/L Basophils) Large Unstained Cells (test code = Large 7 % 0 - 4 % Unstained Cells) Microcytosis (test code = Microcytosis) Slight Not Pres ent Macrocytosis (test code = Macrocytosis) Slight Not Pres ent Anisocytosis (test code = Anisocytosis) Moderate Not Pres ent Hypochromasia (test code = Hypochromasia) Marked Not Pr esent Sedimentation rate, manual (02/22/2020 12:01 AM EDT)2020-02-22 00:01:00 Test Item Value Reference Range Comments Sed Rate (test code = Sed Rate) 59 mm/h 0 - 20 mm/h Morphology Review (02/22/2020 12:01 AM EDT)2020-02-22 00:01:00 Test Item Value Reference Range Comments Smear Review Comments (test code = Smear Review See Comment Undefined Comments) Polychromasia (test code = Polychromasia) Slight Not Pr esent Target Cells (test code = Target Cells) Marked Not Pres ent Schistocytes (test code = Schistocytes) Rare Not Pres ent Lamont Cells (test code = Frederick Cells) Present Not Present Poikilocytosis (test code = Poikilocytosis) Marked Not Present US Outside Film For Continued Care (02/22/2020 6:15 AM EDT)2020-02-22 00:00:00 US Outside Film For Continued Care (02/22/2020 6:15 AM EDT)SpecimenNarrativePerformed AtThese imageswere imported for continued care purposes only. They will not be interpreted and no charges will apply. UNCHCSRADPerforming OrganizationAddressCity/State/ZipcodePhone NumberUNCHCSRAD Sodium afziq7637-20-48 11:33:00 Test Item Value Reference Range Comments Sodium Level (test code = 195258375) 144 137-144 Potassium fsbzj1734-29-63 11:33:00 Test Item Value Reference Range Comments Potassium Level (test code = 322864228) 3.1 3.1-5.1 Chloride qriva1639-51-08 11:33:00 Test Item Value Reference Range Comments Chloride Level (test code = 645837350) 110 101-110 Carbon dioxide qrzky4552-46-59 11:33:00 Test Item Value Reference Range Comments Carbon Dioxide Level (test code = 25056235) 26 22-2 9 Glucose ajhkd5464-57-57 11:33:00 Test Item Value Reference Range Comments Glucose Level (test code = 31343083) 78 70-105 SZE9400-83-19 11:33:00 Test Item Value Reference Range Comments Blood Urea Nitrogen (test code = 152326307) 7.0 7.0- 18.7 Creatinine oqose5773-49-77 11:33:00 Test Item Value Reference Range Comments Creatinine (test code = 037147864) 0.72 0.57-1.11 Estimation of creatinine nmssgvppp0552-04-13 11:33:00 Test Item Value Reference Range Comments Estimated Creatinine Clearance 133.08 P T Ht: 170.18cm, PT Wt: Calc (test code = 196532466) 102 .7KG Anion gap fvnffriqgri9677-92-02 11:33:00 Test Item Value Reference Range Comments Anion Gap (test code = 27513989) 11 7-16 Tqknfmm6644-82-58 11:33:00 Test Item Value Reference Range Comments Calcium Level (test code = 74939941) 8.6 8.4-10.2 Total bsktkvnnn3199-27-03 11:33:00 Test Item Value Reference Range Comments Total Bilirubin (test code = EVT0642) 0.2 0.1-1.2 Total protein djgcj6677-57-74 11:33:00 Test Item Value Reference Range Comments Total Protein (test code = 2885-2) 6.4 6.0-8.3 Nauayyu8478-54-25 11:33:00 Test Item Value Reference Range Comments Albumin (test code = CQY8564) 3.9 3.2-5.2 Plasma globulin measurement (mass/volume)2019-09-19 11:33:00 Test Item Value Reference Range Comments Globulin (test code = 16947-0) 2.5 2.6-4.6 Albumin to globulin zvekk0979-16-17 11:33:00 Test Item Value Reference Range Comments Albumin/Globulin Ratio (test code = 457253) 1.6 1.1- 2.5 AST (SGOT) ser/ogft7417-14-34 11:33:00 Test Item Value Reference Range Comments Aspartate Amino Transf (AST/SGOT) (test code = 14 5 -34 83815788) Alkaline qxwxqduuqla9498-65-69 11:33:00 Test Item Value Reference Range Comments Alkaline Phosphatase (test code = 81735134) 87 40-1 50 ALT (SGPT) ser/obwm5708-28-79 11:33:00 Test Item Value Reference Range Comments Alanine Aminotransferase (ALT/SGPT) (test code = 17 0-55 1742-6) Lipase ser/jusi3570-94-04 11:33:00 Test Item Value Reference Range Comments Lipase (test code = 3040-3) 12 7-78 Magnesium nhdcw1967-46-07 11:33:00 Test Item Value Reference Range Comments Magnesium Level (test code = 108587255) 1.9 1.6-2.6 Blood erythrocytes automated count (number/volume)2019-09-19 10:25:00 Test Item Value Reference Range Comments Red Blood Count (test code = 789-8) 4.09 3.69-4.88 Blood hemoglobin measurement (mass/volume)2019-09-19 10:25:00 Test Item Value Reference Range Comments Hemoglobin (test code = 718-7) 10.9 11.4-14.4 Automated blood hematocrit (volume fraction)2019-09-19 10:25:00 Test Item Value Reference Range Comments Hematocrit (test code = 4544-3) 34.3 33.3-41.4 Automated erythrocyte mean corpuscular fmkdxv5758-41-62 10:25:00 Test Item Value Reference Range Comments Mean Corpuscular Volume (test code = 787-2) 83.9 79.3 -94.8 Automated erythrocyte mean corpuscular hemoglobin (mass per erythrocyte) 2019-09-19 10:25:00 Test Item Value Reference Range Comments Mean Corpuscular Hemoglobin (test code = 785-6) 26.6 26.8-33.2 Automated erythrocyte mean corpuscular hemoglobin concentration measurement (mass/volume)2019-09-19 10:25:00 Test Item Value Reference Range Comments Mean Corpuscular Hemoglobin Concent (test code = 31.7 33.5-35.5 786-4) Automated erythrocyte distribution width jzhbm0363-74-56 10:25:00 Test Item Value Reference Range Comments Red Cell Distribution Width (test code = 788-0) 14.1 12.0-15.1 Automated blood platelet count (count/volume)2019-09-19 10:25:00 Test Item Value Reference Range Comments Platelet Count (test code = 777-3) 290 165-353 Automated blood platelet mean volume ddcgwixkbto3671-57-97 10:25:00 Test Item Value Reference Range Comments Mean Platelet Volume (test code = 24225-3) 8.0 7.5-1 0.6 Automated blood neutrophil count as percentage of total efwoxytphz6696-40-35 10:25:00 Test Item Value Reference Range Comments Neutrophils (%) (Auto) (test code = 770-8) 63.5 43.2- 71.5 Automated blood lymphocyte count as percentage of total regazdsqoi4893-81-49 10:25:00 Test Item Value Reference Range Comments Lymphocytes (%) (Auto) (test code = 736-9) 23.5 16.8- 43.4 Automated blood monocyte count as percentage of total lqaaxpopwn6562-23-33 10:25:00 Test Item Value Reference Range Comments Monocytes (%) (Auto) (test code = 5905-5) 11.7 4.6-12 .4 Automated blood eosinophil count as percentage of total dzkexnvgfg2004-23-07 10:25:00 Test Item Value Reference Range Comments Eosinophils (%) (Auto) (test code = 713-8) 0.4 0.7-7 .8 Automated blood basophil count as percentage of total pcofyeqxuf1941-01-01 10:25:00 Test Item Value Reference Range Comments Basophils (%) (Auto) (test code = 706-2) 0.9 0.2-1.2 Blood neutrophils automated count (number/volume)2019-09-19 10:25:00 Test Item Value Reference Range Comments Neutrophils # (Auto) (test code = 751-8) 5.7 1.9-7.2 Automated blood lymphocyte count (number/volume)2019-09-19 10:25:00 Test Item Value Reference Range Comments Lymphocytes # (Auto) (test code = 731-0) 2.1 1.1-2.7 Blood monocytes automated count (number/volume)2019-09-19 10:25:00 Test Item Value Reference Range Comments Monocytes # (Auto) (test code = 742-7) 1.0 0.3-0.8 Automated blood eosinophil fpaqc9783-60-78 10:25:00 Test Item Value Reference Range Comments Eosinophils # (Auto) (test code = 711-2) 0.0 0.0-0.5 Automated blood basophil count (count/volume)2019-09-19 10:25:00 Test Item Value Reference Range Comments Basophils # (Auto) (test code = 704-7) 0.1 0.0-0.1 Blood leukocytes automated count (number/volume)2019-09-19 10:25:00 Test Item Value Reference Range Comments White Blood Count (test code = 6690-2) 8.9 3.6-11.1 Rapid Influenza A\S\2018-10-12 10:45:00 Test Item Value Reference Range Comments Influenza A (test code = FLUA) nEGATIVE Rapid Influenza B\S\2018-10-12 10:45:00 Test Item Value Reference Range Comments Influenza B (test code = FLUB) Negaitive Assessments Condition Name Status Diagnosis Date Treating Clinici an Diabetes mellitus Active 2020-06-27 17:41:54 Long-term current use of insulin Active 2020-06-27 17:4 1:54 Steroid-induced diabetes Active 2020-07-01 16:13:56 Diabetes mellitus Active 2020-04-30 11:19:12 Long-term current use of insulin Active 2020-05-13 16:5 7:53 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 mellitus with Active hyperglycemia rn long term care (current) use of insulin Active Adverse effect of glucocort/synth Active analog, init Migraine w/o aura, not intractable, w/o Active status migrainosus Headache Active Mixed hyperlipidemia Active Hypothyroidism, unspecified Active Essential (primary) hypertension Active Hypothyroidism, unspecified Active Mixed hyperlipidemia Active Body mass index (BMI) 30.0-30.9, adult Active Chest pain Active Chest pain Active Chest pain Active Palpitations Active Essential hypertension Active Chest pain Active Palpitations Active Essential hypertension Active Anxiety disorder, unspecified Active Insomnia, unspecified Active Headache Active Body mass index (BMI) 30.0-30.9, adult Active Hypothyroidism, unspecified Active Essential (primary) hypertension Active Mixed hyperlipidemia Active Obesity, unspecified Active Encounters Start End Encounter Admission Attending Care Care Encounter Date/Time Date/Time Type Type Clinicians Facility Department ID 2020-02-[address] [facility] [id number] _ 09:52:59 OUMOU [id number] 2020-02-22 Inpatient ER FI[facility], [facility] [id number]_ 06:13:00 ANNABEL [id number] 2020-02-21 Inpatient ER [facility], [facility] [id number]_ 08:09:00 PHUONG [id number] 2020-07-01 2020-07-01 Geri Parkinson [id number] _[id number] 00:00:00 00:00:00 [facility] 1027 PA-C: [address] [place] [address], Ph. 2020-05-19 2020-05-19 Outpatient [facility] [id number] 00:00:00 00:00:00 2020-05-13 2020-05-13 Geri Parkinson [id number] _[id number] 00:00:00 00:00:00 [facility] 0908 PA-C: [address] [facility] [place] [address], Ph. 2020-04-30 2020-04-30 Outpatient [facility] [id number]_ 00:00:00 23:59:00 [id number] 2020-04-30 2020-04-30 [facility]patient [facility] [id number] 00:00:00 00:00:00 2020-04-14 2020-04-14 Outpatient Hany [facility] 2 [id number] 15:15:00 15:15:00 [facility] [id number] s [id number] and [id number], 2020-03-26 2020-03-26 [facility]patient [facility] [id number] 00:00:00 00:00:00 2020-03-20 2020-03-20 [facility]patient [facility] [id number] 00:00:00 00:00:00 2020-03-19 2020-03-19 Outpatient EL [facility] [id number]_ 11:55:07 14:34:06 [id number] 2020-03-18 2020-03-18 Outpatient [facility] [id number] 09:00:00 10:00:00 2020-03-18 2020-03-18 Outpatient EL [facility] [id number]_ 00:00:00 00:00:00 [id number] 2020-03-16 2020-03-16 Outpatient [facility] [id number] 00:00:00 00:00:00 2020-02-21 2020-02-23 Inpatient ER ELIZABETH, [facility] [id number]_ 23:35:00 15:08:00 OUMOU [id number] 2020-02-21 2020-02-23 Inpatient [facility] [id number] 23:35:00 15:08:00 2020-02-21 2020-02-21 Outpatient [facility] [id number] 00:00:00 00:00:00 2020-02-21 2020-02-21 Outpatient [facility] [id number] 00:00:00 00:00:00 2020-02-21 2020-02-21 Outpatient [facility] [id number] 00:00:00 00:00:00 2019-09-19 2019-09-19 Emergency ED JUAN DANIEL NOLAND [facility] [id number] 09:02:00 12:40:00 4 2019-09-14 2019-09-14 Appointment ISAIAH Del Real [facility] 229 [id number] 13:00:00 13:00:00 ; Valentino Garnett MD 2019-09-06 2019-09-06 [facility] [id number] 15:45:00 15:45:00 [facility] [id number] s [id number] and [id number] Multispecialt y Clinic, 2019-08-13 2019-08-13 [facility] [id number] 16:00:00 16:00:00 ; JUSTINE amanda, Clinical WB 2019-08-13 2019-08-13 [facility] [id number] 15:00:00 15:00:00 ; JUSTINE amanda, Echo 2019-08-06 2019-08-06 [facility] [id number] 13:00:00 13:00:00 ; Valentino Garnett MD 2019-06-12 2019-06-12 Appointment EVIE Del RealRUSTNikki [facility] [id number] 15:45:00 15:45:00 ; Valentino Garnett MD 2019-04-20 2019-04-20 [facility] 9 [id number] 14:15:00 14:15:00 [facility]???s [id number] and [id number] Multispecialt MANAS y Clini 2019-01-25 2019-01-25 Outpatient JIMMIE SHETTY, [facility] [id number] 00:03:00 00:03:00 CLARITA 6 2018-12-29 2018-12-29 Appointment EVIE Del RealCITLALI [facility] [id number] 08:00:00 08:00:00 ; Valentino Garnett MD 2018-12-15 2018-12-15 Appointment EVIE Del RealCITLALI [facility] [id number] 11:00:00 11:00:00 ; Valentino Garnett MD 2018-11-27 2018-11-27 Appointment ISAIAH Del Real [facility] 215 [id number] 08:00:00 08:00:00 ; Valentino Garnett MD 2018-09-25 2018-09-25 [facility] 3 [id number] 16:15:00 16:15:00 [facility]kendy Children [id number] s [id number] [facility] [place] 2018-06-09 2018-06-09 [facility] [id number] 09:00:00 09:00:00 Gricel Children [id number] s [id number] and [id number] [facility] [place] Immunizations Ordered Immunization Filled Immunization Date Status Commen ts Refusal Reason Name Name influenza, 2020-05-30 Completed injectable, 00:00:00 quadrivalent Payers Payer Name Policy Type Policy Number Effective Date Expiration D ate [employer] BLUE [id number] 2019 00:00:00 OPTIONS/PPO/ADV Plan of Treatment Planned Activity Planned Date Details Comments Future Scheduled Test [code = ] Future Scheduled Test [code = ] Future Scheduled Test [code = ] Future Scheduled Test [code = ] Future Scheduled Test [code = ] Future Scheduled Test [code = ] Future Scheduled Test [code = ] Future Scheduled Test [code = ] Future Scheduled Test [code = ] Future Scheduled Test [code = ] Future Scheduled Test [code = ] Future Scheduled Test [code = ] Future Scheduled Test [code = ] Future Scheduled Test [code = ] Future Scheduled Test [code = ] Future Scheduled Test [code = ] Future Scheduled Test [code = ] Future Scheduled Test [code = ] Future Scheduled Test [code = ] Future Scheduled Test [code = ] Future Scheduled Test [code = ] Future Scheduled Test [code = ] Future Scheduled Test [code = ] Future Scheduled Test [code = ] Future Scheduled Test [code = ] Future Scheduled Test [code = ] Future Scheduled Test [code = ] Future Scheduled Test [code = ] Future Scheduled Test [code = ] Future Scheduled Test [code = ] Future Scheduled Test [code = ] Future Scheduled Test [code = ] Future Scheduled Test [code = ] Future Scheduled Test [code = ] Future Scheduled Test [code = ] Future Scheduled Test [code = ] Future Scheduled Test [code = ] Future Scheduled Test [code = ] Future Scheduled Test [code = ] Future Scheduled Test [code = ] Future Scheduled Test [code = ] Future Scheduled Test [code = ] Future Scheduled Test [code = ] Future Scheduled Test [code = ] Future Scheduled Test [code = ] Future Scheduled Test [code = ] Future Scheduled Test [code = ] Future Scheduled Test [code = ] Future Scheduled Test [code = ] Future Scheduled Test [code = ] Future Appointment 2020-10-03 13:20:00 Geri Onofre, [address]; [address], [place] [address] Future Appointment 2020-08-19 15:20:00 Geri Onofre, [address]; [address], [place] [address] Future Appointment 2020-08-12 00:00:00 Geri Onofre, [address]; [address], [place] [address] Social History Social Habit Start Date Stop Date Comments Tobacco use and exposure 2020-02-22 00:00:00 2020-02-22 00:00:00 Tobacco smoking status NHIS 2020-02-22 00:00:00 2020-02-22 00:00 :00 Alcohol intake 2020-02-22 00:00:00 2020-02-22 00:00:00 Smoking Status Start Date Stop Date Never smoker Never Smoker Social History Observation Description Sex Female Vital Signs Vital Name Observation Time Observation Value Comments BP Diastolic 2020-07-01 00:00:00 80 mm[Hg] Height 2020-07-01 00:00:00 67 [in_i] BMI (Body Mass Index) 2020-07-01 00:00:00 36.1 kg/m2 BP Systolic 2020-07-01 00:00:00 120 mm[Hg] Body Weight 2020-07-01 00:00:00 230.4 [lb_av] BP Diastolic 2020-05-13 00:00:00 100 mm[Hg] Height 2020-05-13 00:00:00 67 [in_i] BMI (Body Mass Index) 2020-05-13 00:00:00 34.2 kg/m2 BP Systolic 2020-05-13 00:00:00 158 mm[Hg] Body Weight 2020-05-13 00:00:00 218.3 [lb_av] WEIGHT 2019-09-19 09:13:00 102.7000 kg HEIGHT 2019-09-19 09:13:00 170.083026 cm WEIGHT 2019-01-25 07:45:00 84 kg HEIGHT 2019-01-25 07:45:00 170.189311 cm WEIGHT 2019-01-25 00:03:00 84 kg HEIGHT 2019-01-25 00:03:00 170.861529 cm Systolic blood pressure 2020-02-23 11:24:00 125 mm[Hg] Diastolic blood pressure 2020-02-23 11:24:00 75 mm[Hg] Heart rate 2020-02-23 11:24:00 87 /min Body temperature 2020-02-23 11:24:00 36.61 Melita Respiratory rate 2020-02-23 11:24:00 16 /min Oxygen saturation in Arterial blood by 2020-02-23 11:24:00 97 % Pulse oximetry Body height 2020-02-22 01:00:00 170.2 cm Body weight 2020-02-22 01:00:00 97.886 kg Weight 2019-09-19 09:13:00 226.41 [lb_av] BMI (Body Mass Index) 2019-09-19 09:13:00 35.0 kg/m2 Hospital Discharge Instructions 1. Diabetes mellitus 2. Long-term current use of insulin 3. Steroid-induced diabetes Discussion Note: None recorded. Patient educational handouts: No information available.1. Diabetes mellitus HbA1c (hemoglobin A1c), blood glucose, fingerstick, blood C-peptide, serum GAD65 Ab, QN, IA, Serum insulin Ab, serum - Transfer the serum into a [facility] PP transpak frozen purple tube tube with screw cap ([facility] N [id number]). Freeze immediately and maintain frozen until tested. To avoid delays in turnaround time when requesting multiple tests on frozen samples,please submit separate frozen specimens for each test requested. islet cell Ab (ia-2), serum - Transfer the serum into a [facility] PP transpak frozen purple tube with screw cap ([facility] No. [id number]). Fr eeze immediately and maintain frozen until tested. To avoid delays in turnaround time when requesting multiple tests on frozen samples, please submit separate frozen specimens for each test requested. 2. Long-term current use of insulin Discussion Note: None recorded. Patient educational handouts: No information available.
== END ==
LOC: RDC 09:15
PROVIDERS: ATTEND Nurse Practitioner Family
DX: Z20.828 Contact with and (suspected) exposure to other viral communicable diseases (principal); I10 Essential (primary) hypertension; E11.9 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 mellitus without complications; M06.9 Rheumatoid arthritis, unspecified; E03.9 Hypothyroidism, unspecified; Z88.8 Allergy status to other drugs, medicaments and biological substances
CPT/HCPCS: 87070; 87880; 87804; 99201; 99211; U0003; C9803; 87635

== ENCOUNTER → 2020-07-26 | Outpatient (CLI) | payer BC ==
[2020-07-26 10:15] LABS: ABSOLUTE LYMPHOCYTES (AUTO) 3.5 10^3/uL (0.5-4.7); ABSOLUTE MONOCYTES (AUTO) 0.7 10^3/uL (0.1-1.4); ABSOLUTE NEUT (AUTO) 7.2 10^3/uL (1.7-8.2); BASOPHILS % (AUTO) 0.3 % (0-2); EOSINOPHILS % (AUTO) 0.3 % (0-6); HEMATOCRIT 34.7 % (36.0-47.0); HEMOGLOBIN 11.1 g/dL (12.0-15.5); LYMPHOCYTES % (AUTO) 30.5 % (13-45); MEAN CORPUSCULAR HEMOGLOBIN 28.5 pg (27.0-33.4); MEAN CORPUSCULAR HGB CONC 32.1 g/dL (32.0-36.0); MEAN CORPUSCULAR VOLUME 89 fl (80-97); MONOCYTES % (AUTO) 6.3 % (3-13); PLATELET COUNT 339 10^3/uL (150-450); RED BLOOD COUNT 3.91 10^6/uL (3.72-5.28); RED CELL DISTRIBUTION WIDTH 16.1 % (11.5-14.0); SEGMENTED NEUTROPHILS % (AUTO) 62.6 % (42-78); TOTAL CELLS COUNTED % (AUTO) 100 %; WHITE BLOOD COUNT 11.6 10^3/uL (4.0-10.5)
[2020-07-26 10:31] LABS: ALBUMIN 4.1 g/dL (3.5-5.0); ALKALINE PHOSPHATASE 109 U/L (38-126); ANION GAP 11 (5-19); ASPARTATE AMINO TRANSFERASE 30 U/L (14-36); BILIRUBIN,DIRECT 0.1 mg/dL (0.0-0.4); BILIRUBIN,TOTAL 0.3 mg/dL (0.2-1.3); BLOOD UREA NITROGEN 12 mg/dL (7-20); CALCIUM 9.6 mg/dL (8.4-10.2); CARBON DIOXIDE 30 mmol/L (22-30); CHLORIDE 100 mmol/L (98-107); GLUCOSE 153 mg/dL (75-110); POTASSIUM 3.6 mmol/L (3.6-5.0)
[2020-07-26 10:53] LABS: ERYTHROCYTE SEDIMENTATION RATE 40 mm/hr (0-20)
== END ==
LOC: OD 09:10
PROVIDERS: ATTEND Nurse Practitioner Family
DX: K75.4 Autoimmune hepatitis (principal); E09.9 Drug or chemical induced diabetes mellitus without complications; T38.0X5A Adverse effect of glucocorticoids and synthetic analogues, initial encounter; Z79.899 Other long term (current) drug therapy
CPT/HCPCS: 36415; 80053; 85025; 85652; 86140

== ENCOUNTER → 2020-08-22 | Outpatient (CLI) | payer BC ==
[~2020-08-22] MED LIST: COVID-19 VACCINE (PFIZER)/PF 30 MCG/0.3 ML VIAL IM ONE; EPINEPHRINE INJ/PF 1 MG/1 ML AMPULE IM PRN
== END ==
LOC: EMPHEALTH 11:51
PROVIDERS: ATTEND Internal Medicine
DX: Z23 Encounter for immunization (principal)
CPT/HCPCS: 91300

== ENCOUNTER → 2020-09-12 | Outpatient (CLI) | payer BC | LOC: EMPHEALTH 12:52 | PROVIDERS: ATTEND Internal Medicine | DX: Z23 Encounter for immunization (principal) | CPT/HCPCS: 91300 ==

== ENCOUNTER → 2020-09-27 | Outpatient (CLI) | payer BC ==
[2020-09-27 11:33] LABS: HEMATOCRIT 36.6 % (36.0-47.0); MEAN CORPUSCULAR HEMOGLOBIN 28.4 pg (27.0-33.4); MEAN CORPUSCULAR HGB CONC 32.7 g/dL (32.0-36.0); MEAN CORPUSCULAR VOLUME 87 fl (80-97); PLATELET COUNT 306 10^3/uL (150-450); RED BLOOD COUNT 4.22 10^6/uL (3.72-5.28); RED CELL DISTRIBUTION WIDTH 13.8 % (11.5-14.0); WHITE BLOOD COUNT 11.8 10^3/uL (4.0-10.5)
[2020-09-27 11:55] LABS: ALBUMIN 3.8 g/dL (3.5-5.0); ALKALINE PHOSPHATASE 97 U/L (38-126); ANION GAP 6 (5-19); ASPARTATE AMINO TRANSFERASE 27 U/L (14-36); BILIRUBIN,DIRECT 0.2 mg/dL (0.0-0.4); BILIRUBIN,TOTAL 0.4 mg/dL (0.2-1.3); BLOOD UREA NITROGEN 11 mg/dL (7-20); CALCIUM 9.5 mg/dL (8.4-10.2); CARBON DIOXIDE 31 mmol/L (22-30); CHLORIDE 103 mmol/L (98-107); GLUCOSE 143 mg/dL (75-110); POTASSIUM 3.8 mmol/L (3.6-5.0); TOTAL PROTEIN 6.7 g/dL (6.3-8.2)
== END ==
LOC: OD 08:54
PROVIDERS: ATTEND Nurse Practitioner Family
DX: E11.65 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 mellitus with hyperglycemia (principal); K75.4 Autoimmune hepatitis; Z79.899 Other long term (current) drug therapy
CPT/HCPCS: 36415; 80053; 85027

== ENCOUNTER 2020-09-29 04:00 | Inpatient (IN) | payer BC ==
[2020-09-29] MEDS ORDERED: DILTIAZEM HCL/D5W 125 MG/125 ML RTUINJ IV PRN (04:22)
--- NOTE | 2020-09-29 04:32 | ER Document Report ---
Entered by KENDRICK MILLER SCRIBE 09/29/20 0417 Acting as scribe for:OUMOU HOWARD IV, MD ED Cardiac - General Chief Complaint: Chest Pain Stated Complaint: CHEST PAIN Time Seen by Provider: 09/29/20 04:05 Mode of Arrival: Medic Information source: Patient Notes: This 39-year-old female patient with HTN and hypothyroidism on Synthroid presents to the emergency department today with complaints of a rapid heart rate which began this evening prior to arrival. Patient had a heart rate of 160 when EMS arrived on scene and she was noted to be in atrial fibrillation with rapid ventricular response. Patient mentions that she noticed her heart was racing and she tried to vagal herself down with no success. She denies any leg swelling or shortness of breath. She does not have a history of PE or DVT. She is not a smoker. TRAVEL OUTSIDE OF THE [place] 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 Lives with: Family Family History: Reviewed & Not Pertinent - Past Medical History Cardiac Medical History: Reports: Hx Hypertension Endocrine Medical History: Reports: Hx Hypothyroidism Surgical Hx: Negative Review of Systems - Review of Systems Constitutional: No symptoms reported EENT: No symptoms reported Cardiovascular: See HPI, Palpitations, Heart racing Respiratory: No symptoms reported Gastrointestinal: No symptoms reported Genitourinary: No symptoms reported Female Genitourinary: No symptoms reported Musculoskeletal: No symptoms reported Skin: No symptoms reported Hematologic/Lymphatic: No symptoms reported Neurological/Psychological: No symptoms reported -: Yes All other systems reviewed and negative Physical Exam - Vital signs Vitals: Resp 23 H 09/29/20 03:59 - Notes Notes: Physical Exam: General: Alert, appears well. HEENT: Normocephalic. Atraumatic. PERRL. Extraocular movements intact. Oropharynx clear. No thyroid enlargement. Neck: Supple. Non-tender. Respiratory: No respiratory distress. Clear and equal breath sounds bilaterally. Cardiovascular: Tachycardic, irregular irregular. Abdominal: Normal Inspection. Non-tender. No distension. Normal Bowel Sounds. Back: No gross abnormalities. Extremities: Moves all four extremities. Upper extremities: Normal inspection. Normal ROM. Lower extremities: Normal inspection. No edema. Normal ROM. Neurological: Normal cognition. AAOx4. Normal speech. Psychological: Normal affect. Normal Mood. Skin: Warm. Dry. Normal color. Course - Re-evaluation Re-evalutation: 09/29/20 04:27 Differential diagnosis: A. fib with RVR, SVT, electrolyte imbalance, ACS 09/29/20 05:04 Patient converted to a normal sinus rhythm in the ED without any medication given. 09/29/20 07:19 Dr. Del Real spoke with Dr. Moo Murphy. Dr. Vee Murphy wants to be discharged home and follow-up as an outpatient with Dr. Del Real for EP studies. - Vital Signs Vital signs: Temp Pulse Resp BP Pulse Ox 98.2 F 23 H 152/107 H 100 09/29/20 04:17 09/29/20 07:01 09/29/20 07:01 09/29/20 07:01 - Laboratory Results Result Diagrams: 09/29/20 04:25 09/29/20 04:25 Laboratory Results Interpreted: 09/29/20 09/29/20 09/29/20 04:25 04:25 04:25 WBC 13.2 H MCHC 31.5 L Absolute Neuts (auto) 9.1 H Glucose 277 H TSH 25.50 H Free T4 0.58 L Free T3 pg/mL 1.95 L Critical Laboratory Results Reviewed: Yes Attending or Supervising Physician who Reviewed Labs: OUMOU HOWARD IV - Radiology Results Critical Radiology Results Reviewed: No Critical Results - EKG Interpretation by Me Additional EKG results interpreted by me: 09/29/20 04:28 EKG obtained on 09/29/2020 0411 hrs. was interpreted by this . Findings: Atrial fibrillation with rapid ventricular response rate 131, normal axis, no discernible P waves, rhythm is irregularly irregular, QRS complex appears narrow, QTC is 496, there are no obvious patterns of ST segment elevation, depression or reciprocal changes seen to suggest acute myocardial ischemia or infarction. There is no prior EKG immediately available for comparison. Impression: Atrial fibrillation with RVR 09/29/20 05:05 Repeat EKG done on 09/29/2020 0454 hrs. was interpreted by this MD. Findings: Patient has apparently converted into a sinus rhythm spontaneously, normal sinus rhythm, rate 86, SC interval appears to be within normal limits, P waves preceding QRS complexes, QRS complexes appear narrow, QTC is 445, there are no obvious patterns of ST segment elevation, depression or reciprocal changes seen to suggest acute myocardial ischemia or infarction. - Consults Dr. Johnson, Cardiology Time consulted: 05:40 - recommended admission Reason for consultation: 09/29/20 05:52 new onset a fib with rvr Consulted provider: will see as inpatient Dr. Brasher Time consulted: 05:52 Reason for consultation: 09/29/20 05:53 new onset a fib with rvr Consulted provider: will come to ER Discharge - Discharge Clinical Impression: Atrial fibrillation with rapid ventricular response Condition: Stable Disposition: HOME, SELF-CARE I personally performed the services described in the documentation, reviewed and edited the documentation which was dictated to the scribe in my presence, and it accurately records my words and actions.
[2020-09-29] MEDS ORDERED: DILTIAZEM HCL/D5W 0 MG/0 ML RTUINJ IV ONE (04:43)
[2020-09-29 04:45] LABS: ABSOLUTE BASOPHILS # (AUTO) 0.1 10^3/uL (0.0-0.2); ABSOLUTE LYMPHOCYTES (AUTO) 3.3 10^3/uL (0.5-4.7); ABSOLUTE MONOCYTES (AUTO) 0.7 10^3/uL (0.1-1.4); ABSOLUTE NEUT (AUTO) 9.1 10^3/uL (1.7-8.2); BASOPHILS % (AUTO) 0.8 % (0-2); EOSINOPHILS % (AUTO) 0.2 % (0-6); HEMATOCRIT 39.9 % (36.0-47.0); HEMOGLOBIN 12.6 g/dL (12.0-15.5); LYMPHOCYTES % (AUTO) 24.6 % (13-45); MEAN CORPUSCULAR HEMOGLOBIN 27.4 pg (27.0-33.4); MEAN CORPUSCULAR HGB CONC 31.5 g/dL (32.0-36.0); MEAN CORPUSCULAR VOLUME 87 fl (80-97); MONOCYTES % (AUTO) 5.5 % (3-13); PLATELET COUNT 317 10^3/uL (150-450); RED CELL DISTRIBUTION WIDTH 13.7 % (11.5-14.0); SEGMENTED NEUTROPHILS % (AUTO) 68.9 % (42-78); TOTAL CELLS COUNTED % (AUTO) 100 %; WHITE BLOOD COUNT 13.2 10^3/uL (4.0-10.5)
--- NOTE | 2020-09-29 05:01 | RADIOLOGY REPORT (SQ) ---
EXAM DESCRIPTION: XR CHEST 1 VIEW COMPLETED DATE/TME: 09/29/2020 04:23 CLINICAL HISTORY: 39 years, Female, CP COMPARISON: None. FINDINGS: No focal lung consolidation. No pleural effusion. No pneumothorax. Cardiac and mediastinal silhouette is unremarkable. No acute osseous abnormality. Soft tissues are unremarkable. IMPRESSION: No acute findings. No focal lung consolidation. copyright 2010 [employer]- All Rights Reserved
[2020-09-29 05:14] LABS: ALKALINE PHOSPHATASE 115 U/L (38-126); ANION GAP 11 (5-19); ASPARTATE AMINO TRANSFERASE 25 U/L (14-36); BILIRUBIN,DIRECT 0.2 mg/dL (0.0-0.4); BILIRUBIN,TOTAL 0.4 mg/dL (0.2-1.3); BLOOD UREA NITROGEN 14 mg/dL (7-20); CALCIUM 9.6 mg/dL (8.4-10.2); CARBON DIOXIDE 24 mmol/L (22-30); CHLORIDE 104 mmol/L (98-107); CREATINE KINASE 55 U/L (30-135); GLUCOSE 277 mg/dL (75-110); POTASSIUM 3.9 mmol/L (3.6-5.0); TOTAL PROTEIN 6.8 g/dL (6.3-8.2)
[2020-09-29 05:29] LABS: FREE T4 (FREE THYROXINE) 0.58 ng/dL (0.78-2.19)
[2020-09-29 05:30] LABS: FREE T3 1.95 pg/mL (2.77-5.27)
[2020-09-29 05:32] LABS: CREATINE KINASE MB < 0.22 ng/mL (<4.55); TROPONIN I < 0.012 ng/mL
[2020-09-29 05:43] LABS: THYROID STIMULATING HORMONE 25.5 uIU/mL (0.47-4.68)
--- NOTE | 2020-09-29 06:08 | EKG REPORT ---
SEVERITY:- ABNORMAL ECG - ATRIAL FIBRILLATION, RAPID V-RATE 88-192 NONSPECIFIC REPOL ABNORMALITY, DIFFUSE LEADS BORDERLINE PROLONGED QT INTERVAL : Confirmed by: Shawn Laureano MD 29-Sep-2020 06:08:15
--- NOTE | 2020-09-29 06:08 | EKG REPORT ---
SEVERITY:- NORMAL ECG - SINUS RHYTHM : Confirmed by: Shawn Laureano MD 29-Sep-2020 06:07:18
[2020-09-29] MEDS ORDERED: LEVOTHYROXINE SODIUM 0.112 MG TABLET PO ONE (06:15)
[2020-09-29] MEDS ORDERED: LEVOTHYROXINE SODIUM 0.088 MG TABLET PO ONE (06:15)
--- NOTE | 2020-09-29 06:34 | PDOC H&P ---
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 She said that she was in her usual state of health until this morning a little after 2 AM when she woke up and felt like her heart was beating really fast. She says that she has anxiety and she thought that it was just a bout of anxiety and so she got up to get a glass of water and tried to calm herself down but it did not seem like it was going away. She says she then tried Valsalva maneuver, carotid massage, and blowing through a straw, but none of these made it any better. At this point she was concerned and so she called EMS. They did an EKG and told her that she was in atrial fibrillation with RVR. They gave her a bolus of IV Cardizem. Her heart rate was still in the 130s when she got to the ER. A Cardizem drip was ordered, but it was never started because she converted to a sinus rhythm before the drip was initiated. She says that she takes all of her medications on a regular basis, with the exception of her Synthroid, which for one reason or another she only takes once or twice a week. She says she supposed to take it on an empty stomach and a lot of the times she forgets to take it before she eats something in the morning. 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 The prednisone is caused her to have diabetes and so she uses an insulin pump. She takes losartan and Toprol-XL for her blood pressure. She said that she had a cardiac cath in 2019 but her coronaries were clear, and it was thought that the chest pain that she had had in the ischemia were due to inflammation as result of her rheumatoid arthritis, and she has been on Ranexa since then. Dr. Del Real was contacted from the ER, and apparently has seen her as an outpatient in the past, and felt like with her history that she should stay in the hospital to get a work-up. Past Medical History Cardiac Medical History: Reports: Hypertension Endocrine Medical History: Reports: Diabetes Mellitus Type 2, Hypothyroidism Past Surgical History Past Surgical History: Reports: Cardiac Catheterization Social History Lives with: Family Smoking Status: Never Smoker Family History Family History: Reviewed & Not Pertinent, Hyperlipidemia, Hypertension, Thyroid Disfunction Parental Family History Reviewed: Yes Children Family History Reviewed: NA Sibling(s) Family History Reviewed.: Yes Medication/Allergy Home Medications: Chlorthalidone [Hygroton 25 mg Tablet] 25 mg PO DAILY 02/21/20 Levothyroxine Sodium 250 mcg PO DAILY 02/21/20 Losartan Potassium 50 mg PO BID 02/21/20 Ranolazine [Ranexa 500 mg Tab.sr] 500 mg PO Q12 02/21/20 Allergies/Adverse Reactions: adalimumab [From Humira] Allergy (Verified 02/20/20 18:06) Review of Systems All systems: reviewed and no additional remarkable complaints except as stated - All systems were reviewed and were negative except as noted in the HPI Physical Exam Vital Signs: Temp Pulse Resp BP Pulse Ox 98.2 F 19 154/105 H 96 09/29/20 04:17 09/29/20 05:01 09/29/20 05:00 09/29/20 05:01 Intake & Output 09/27/20 09/28/20 09/29/20 06:59 06:59 06:59 Weight 108.862 kg General appearance: PRESENT: no acute distress, cooperative, obese Head exam: PRESENT: atraumatic, normocephalic Eye exam: PRESENT: EOMI, PERRLA. ABSENT: conjunctival injection, nystagmus, scleral icterus Ear exam: PRESENT: normal external ear exam Neck exam: PRESENT: full ROM. ABSENT: carotid bruit, JVD, lymphadenopathy, meningismus, tenderness, thyromegaly Respiratory exam: PRESENT: clear to auscultation darci, symmetrical, unlabored. ABSENT: accessory muscle use, chest wall tenderness, crackles, prolonged expiratory phas, rhonchi, tachypnea, wheezes Cardiovascular exam: PRESENT: RRR, +S1, +S2. ABSENT: diastolic murmur, systolic murmur Pulses: PRESENT: normal carotid pulses Vascular exam: PRESENT: normal capillary refill GI/Abdominal exam: PRESENT: normal bowel sounds, soft. ABSENT: distended, guarding, rebound, tenderness Extremities exam: ABSENT: clubbing, pedal edema Musculoskeletal exam: PRESENT: normal inspection. ABSENT: deformity Neurological exam: PRESENT: alert, awake, oriented to person, oriented to place, oriented to time, oriented to situation, CN II-XII grossly intact. ABSENT: motor sensory deficit Psychiatric exam: PRESENT: appropriate affect, normal mood Skin exam: PRESENT: dry, warm Results Laboratory Results: 09/29/20 04:25 09/29/20 04:25 09/29/20 09/29/20 09/29/20 04:25 04:25 04:25 WBC 13.2 H RBC 4.60 Hgb 12.6 Hct 39.9 MCV 87 MCH 27.4 MCHC 31.5 L RDW 13.7 Plt Count 317 Seg Neutrophils % 68.9 Sodium 138.9 Potassium 3.9 Chloride 104 Carbon Dioxide 24 Anion Gap 11 BUN 14 Creatinine 0.86 Est GFR ( Amer) > 60 Glucose 277 H Calcium 9.6 Magnesium 1.9 Total Bilirubin 0.4 AST 25 Alkaline Phosphatase 115 Total Protein 6.8 Albumin 4.0 TSH Free T4 Free T3 pg/mL 09/29/20 04:25 WBC RBC Hgb Hct MCV MCH MCHC RDW Plt Count Seg Neutrophils % Sodium Potassium Chloride Carbon Dioxide Anion Gap BUN Creatinine Est GFR ( Amer) Glucose Calcium Magnesium Total Bilirubin AST Alkaline Phosphatase Total Protein Albumin TSH 25.50 H Free T4 0.58 L Free T3 pg/mL 1.95 L 09/29/20 09/29/20 04:25 04:25 Creatine Kinase 55 CK-MB (CK-2) < 0.22 Troponin I < 0.012 Impressions: Chest X-Ray 09/29/20 04:09 IMPRESSION: No acute findings. No focal lung consolidation. copyright 2010 [employer]- All Rights Reserved Assessment and Plan - Diagnosis (1) Atrial fibrillation with rapid ventricular response Is this a current diagnosis for this admission?: Yes (2) Hypothyroidism Qualifiers: Hypothyroidism type: other Qualified Code(s): E03.8 - Other specified hypothyroidism Is this a current diagnosis for this admission?: Yes (3) Insulin dependent diabetes mellitus Is this a current diagnosis for this admission?: Yes (4) Rheumatoid arthritis Qualifiers: Rheumatoid arthritis location: unspecified site Rheumatoid factor presence: unspecified presence Qualified Code(s): M06.9 - Rheumatoid arthritis, unspecified Is this a current diagnosis for this admission?: Yes (5) Hypertension Qualifiers: Hypertension type: essential hypertension Qualified Code(s): I10 - Essential (primary) hypertension Is this a current diagnosis for this admission?: Yes - Plan Summary Summary: She is converted back into a sinus rhythm after a push of IV diltiazem, so a drip was not initiated. At this point I have not done anything different with her medications, I will continue her Toprol-XL. Dr. Del Real may decide to change this after he sees the patient. An echocardiogram has been ordered. We will keep her on telemetry. Another troponin is pending, the first 1 was negative. A lot of this could be due to her hypothyroidism. We discussed the importance of making sure she takes her thyroid medication every day. I went ahead and ordered a dose of that for her this morning while her stomach is empty. We will go ahead and continue her other home medications for her chronic conditions. - Time Time Spent with patient: 35 or more minutes Anticipated Discharge Disposition: Home, Self Care Anticipated Discharge Timeframe: within 48 hours - Inpatient Certification Based on my medical assessment, after consideration of the patient's comorbidities, presenting symptoms, or acuity I expect that the services needed warrant INPATIENT care.: Yes I certify that my determination is in accordance with my understanding of Medicare's requirements for reasonable and necessary INPATIENT services [42 CFR 412.3e].: Yes Medical Necessity: Significant Comorbidiites Make Outpatient Treatment Too Risky, Need Close Monitoring Due to Risk of Patient Decompensation, Need For Continuous Telemetry Monitoring, Risk of Complication if Not Cared For in Hospital
[2020-09-29] MEDS ORDERED: LEVOTHYROXINE SODIUM 0.112 MG TABLET ONE (07:00)
[2020-09-29] MEDS ORDERED: LOSARTAN POTASSIUM 50 MG TABLET ONE (07:00)
[2020-09-29] MEDS ORDERED: LEVOTHYROXINE SODIUM 0.088 MG TABLET ONE (07:01)
[2020-09-29 07:12] VITALS: BP 152/107
--- NOTE | 2020-09-29 07:53 | PDOC CONSULTATION ---
Consultation Consult Date: 09/29/20 Attending physician:: JOSE CARLOS MATHEW Provider Consulted: PAM ARELLANO Consult reason:: PAF History of Present Illness Admission Date/PCP: 09/29/20 06:28 DANNY BEDOLLA History of Present Illness: GILSON AGUAYO is a 39 year old female with history of sinus tachycardia, palpitations, hypertension, rheumatoid arthritis, hyperlipidemia, asthma, Graves' disease status post thyroid ablation, migraine headaches, anxiety, no nsmoker and with family history of premature coronary artery disease in her father who had stent placed at age 50 who is consulted by the emergency room physician for evaluation of new onset atrial fibrillation. The patient had been in her usual state of health until earlier today when, at approximately 0200, she developed an episode of palpitations and racing heart. At that point she tried Valsalva maneuvers without success therefore EMS was called. She was found to be in rapid atrial fibrillation and was given a dose of Cardizem. In the ED she was started on a Cardizem drip and spontaneously converted to normal sinus rhythm. She specifically denied chest pain, dizziness, lightheadedness, syncope, diaphoresis and presyncope. Of note, she had been seen in our office in [place] and had undergone a full cardiovascular work-up as depicted below which had been essentially unrevealing. Physical exam on 09/29/2020: GENERAL: Pleasant and conversational. Oriented x3 with normal mood. Not in acute distress. Well groomed and well developed. HEENT: Normocephalic, atraumatic. Pupils equal. Sclerae anicteric. Oropharynx moist. NECK: No JVD. No carotid bruits. LUNGS: Clear to auscultation bilaterally. Normal respiratory effort without the use of accessory muscles or intercostal retractions. CARDIOVASCULAR: Regular rate and rhythm, normal S1 and S2 without murmurs, rubs, or gallops. PMI not displaced. ABDOMEN: No masses or tenderness to palpation. No bruit. No splenomegaly or hepatomegaly. No abdominal aorta bruit noted. EXTREMITIES: No edema, no cyanosis, no clubbing. +2 pulses femoral and pedal pulses bilaterally. SKIN: No lesions or rashes. MUSCULOSKELETAL: No chest tenderness to palpation. NEUROLOGIC: Nonfocal. No gross sensory or motor deficits bilateral upper or lower extremities. Cardiac studies: Echocardiogram on 08/13/19: -LV is normal in size. -Mild concentric LVH. -EF greater than 65%. -Normal diastolic function. -No wall motion abnormalities. -No valvular heart disease noted. [facility] on 12/20/18: -Left main: Patent. -LAD: Patent. -D1: Small vessel, patent. -D2: Patent. -Left circumflex: Patent. -011: Very small and patent. -OM 2: Large, very mild disease. -OM 3: Large vessel and patent. -RCA: Patent. -PLB and PDA: Patent. Past Medical History Cardiac Medical History: Reports: Hypertension Endocrine Medical History: Reports: Diabetes Mellitus Type 2, Hypothyroidism Past Surgical History Past Surgical History: Reports: Cardiac Catheterization Social History Lives with: Family Smoking Status: Never Smoker Family History Family History: Reviewed & Not Pertinent Parental Family History Reviewed: Yes Children Family History Reviewed: Yes Sibling(s) Family History Reviewed.: Yes Medication/Allergy Home Medications: Chlorthalidone [Hygroton 25 mg Tablet] 25 mg PO DAILY 02/21/20 Levothyroxine Sodium 250 mcg PO DAILY 02/21/20 Losartan Potassium 50 mg PO BID 02/21/20 Ranolazine [Ranexa 500 mg Tab.sr] 500 mg PO Q12 02/21/20 Allergies/Adverse Reactions: adalimumab [From Humira] Allergy (Verified 02/20/20 18:06) Physical Exam Vital Signs: Temp Pulse Resp BP Pulse Ox 98.2 F 23 H 152/107 H 100 09/29/20 04:17 09/29/20 07:01 09/29/20 07:01 09/29/20 07:01 Intake & Output 09/28/20 09/29/20 09/30/20 06:59 06:59 06:59 Weight 108.862 kg Results Laboratory Results: 09/29/20 04:25 09/29/20 04:25 09/29/20 09/29/20 09/29/20 04:25 04:25 04:25 WBC 13.2 H RBC 4.60 Hgb 12.6 Hct 39.9 MCV 87 MCH 27.4 MCHC 31.5 L RDW 13.7 Plt Count 317 Seg Neutrophils % 68.9 Sodium 138.9 Potassium 3.9 Chloride 104 Carbon Dioxide 24 Anion Gap 11 BUN 14 Creatinine 0.86 Est GFR ( Amer) > 60 Glucose 277 H Calcium 9.6 Magnesium 1.9 Total Bilirubin 0.4 AST 25 Alkaline Phosphatase 115 Total Protein 6.8 Albumin 4.0 TSH Free T4 Free T3 pg/mL 09/29/20 04:25 WBC RBC Hgb Hct MCV MCH MCHC RDW Plt Count Seg Neutrophils % Sodium Potassium Chloride Carbon Dioxide Anion Gap BUN Creatinine Est GFR ( Amer) Glucose Calcium Magnesium Total Bilirubin AST Alkaline Phosphatase Total Protein Albumin TSH 25.50 H Free T4 0.58 L Free T3 pg/mL 1.95 L 09/29/20 09/29/20 04:25 04:25 Creatine Kinase 55 CK-MB (CK-2) < 0.22 Troponin I < 0.012 Impressions: Chest X-Ray 09/29/20 04:09 IMPRESSION: No acute findings. No focal lung consolidation. copyright 2011 [employer]- All Rights Reserved 09/29/20 04:25 09/29/20 04:25 MCV 87 fl (80-97) 09/29/20 04:25 MCH 27.4 pg (27.0-33.4) 09/29/20 04:25 MCHC 31.5 g/dL (32.0-36.0) L 09/29/20 04:25 RDW 13.7 % (11.5-14.0) 09/29/20 04:25 Seg Neutrophils % 68.9 % (42-78) 09/29/20 04:25 Chloride 104 mmol/L (98-107) 09/29/20 04:25 Carbon Dioxide 24 mmol/L (22-30) 09/29/20 04:25 Anion Gap 11 (5-19) 09/29/20 04:25 Est GFR ( Amer) > 60 (>60) 09/29/20 04:25 Glucose 277 mg/dL (75-110) H 09/29/20 04:25 Calcium 9.6 mg/dL (8.4-10.2) 09/29/20 04:25 Magnesium 1.9 mg/dL (1.6-2.3) 09/29/20 04:25 Total Bilirubin 0.4 mg/dL (0.2-1.3) 09/29/20 04:25 AST 25 U/L (14-36) 09/29/20 04:25 Alkaline Phosphatase 115 U/L (38-126) 09/29/20 04:25 Total Protein 6.8 g/dL (6.3-8.2) 09/29/20 04:25 Albumin 4.0 g/dL (3.5-5.0) 09/29/20 04:25 TSH 25.50 uIU/mL (0.47-4.68) H 09/29/20 04:25 Free T4 0.58 ng/dL (0.78-2.19) L 09/29/20 04:25 Free T3 pg/mL 1.95 pg/mL (2.77-5.27) L 09/29/20 04:25 09/29/20 09/29/20 04:25 04:25 Creatine Kinase 55 CK-MB (CK-2) < 0.22 Troponin I < 0.012 Current Medication List Generic Name Dose Route Start Last Admin Trade Name Freq PRN Reason Stop Dose Admin Azathioprine 150 mg 09/29/20 10:00 Azathioprine 50 Mg Tablet PO 10/29/20 09:59 DAILY DWAIN Diltiazem HCl 125 mg in 125 mls @ 0 mls/hr 09/29/20 04:22 Cardizem Rtu Inj 125 Mg-D5w 125 Ml Premix IV 10/29/20 04:21 CONTINUOUS PRN THIS MED IS NOT "PRN" Protocol Titrate Losartan Potassium 50 mg 09/29/20 10:00 Losartan Potassium 50 Mg Tablet PO 10/29/20 09:59 Q12 DWAIN Metoprolol Succinate 25 mg 09/29/20 10:00 Metoprolol Succinate 25 Mg Tab.Sr.24h PO 10/29/20 09:59 DAILY DWAIN Prednisone 20 mg 09/29/20 10:00 Prednisone 20 Mg Tablet PO 10/29/20 09:59 DAILY DWAIN Ranolazine 500 mg 09/29/20 10:00 Ranolazine 500 Mg Tab.Sr.12h PO 10/29/20 09:59 Q12 DWAIN Discontinued Medications Generic Name Dose Route Start Last Admin Trade Name Freq PRN Reason Stop Dose Admin Diltiazem HCl Confirm 09/29/20 04:43 09/29/20 06:38 Cardizem Rtu Inj 125 Mg-D5w 125 Ml Premix Administered 09/29/20 04:44 Not Given Dose 125 mg in 125 mls @ ud IV .STK-MED ONE Levothyroxine Sodium 0.112 mg 09/29/20 06:15 Levothyroxine Sodium 0.112 Mg Tablet PO 09/29/20 06:16 NOW ONE Levothyroxine Sodium 0.088 mg 09/29/20 06:15 Levothyroxine Sodium 0.088 Mg Tablet PO 09/29/20 06:16 NOW ONE Levothyroxine Sodium Confirm 09/29/20 07:00 09/29/20 07:06 Levothyroxine Sodium 0.112 Mg Tablet Administered 09/29/20 07:01 Not Given Dose 0.112 mg .ROUTE .STK-MED ONE Levothyroxine Sodium Confirm 09/29/20 07:01 09/29/20 07:06 Levothyroxine Sodium 0.088 Mg Tablet Administered 09/29/20 07:02 Not Given Dose 0.088 mg .ROUTE .STK-MED ONE Losartan Potassium Confirm 09/29/20 07:00 09/29/20 07:05 Losartan Potassium 50 Mg Tablet Administered 09/29/20 07:01 50 mg Dose Administration 50 mg .ROUTE .STK-MED ONE Assessment & Plan - Diagnosis (1) Paroxysmal atrial fibrillation with rapid ventricular response Is this a current diagnosis for this admission?: Yes Plan: Review of the documentation in the emergency department demonstrates that she had a rhythm strip by EMS which is more consistent with a supraventricular tachycardia which degenerated into rapid atrial fibrillation. She converted spontaneously. She has no new EKG changes and her physical exam is appropriate for her age and known medical conditions. Her cardiac troponin is negative and she did not have any significant symptoms with this episode. At this point I do not see a class I indication to admit the patient and I will arrange for cardiology follow-up in the office as well as EP consult. We will also update her echocardiogram. Her [id number] score is essentially 1 but if we count her gender it will be 2. I discussed with her adding anticoagulation given her low risk of bleeding as well as the possibility of recurrence of atrial fibrillation which may require cardioversion, she agrees with the plan. Recommendations: -The patient may be discharged from the emergency room. -Start Eliquis 5 mg p.o. twice daily. -I will arrange for follow-up in the office as well as EP consult. -Echocardiogram in the office. (2) Hypertension Qualifiers: Hypertension type: essential hypertension Qualified Code(s): I10 - Essential (primary) hypertension Is this a current diagnosis for this admission?: Yes Plan: She is hypertensive in the emergency room however she has not taken any of her medications. She was instructed to take her outpatient medicines as soon as she gets home. (3) Insulin dependent diabetes mellitus Is this a current diagnosis for this admission?: Yes Plan: The patient will continue to follow-up with her primary care provider. (4) Rheumatoid arthritis Qualifiers: Rheumatoid arthritis location: unspecified site Rheumatoid factor presence: unspecified presence Qualified Code(s): M06.9 - Rheumatoid arthritis, unspecified Is this a current diagnosis for this admission?: Yes Plan: The patient will continue to follow-up with her primary care provider.
[2020-09-29] MEDS ORDERED: RANOLAZINE 500 MG TAB.SR.12H PO SCH (10:00)
[2020-09-29] MEDS ORDERED: METOPROLOL SUCCINATE 25 MG TAB.SR.24H PO SCH (10:00)
[2020-09-29] MEDS ORDERED: LOSARTAN POTASSIUM 50 MG TABLET PO SCH (10:00)
[2020-09-29] MEDS ORDERED: PREDNISONE 20 MG TABLET PO SCH (10:00)
[2020-09-29] MEDS ORDERED: AZATHIOPRINE 50 MG TABLET PO SCH (10:00)
--- OUTSIDE RECORDS SUMMARY | 2020-10-01 09:21 | XMS REPORT ---
:1980 Author Organization [facility] Address [facility] [address] [place] [address] Care Team Providers Name Role Phone PCP, NONE PER PATIENT Primary Care Physician Unavailable SEAN JOHNSON Attending Clinician Unavailable Frank FIORE Attending Clinician Unavailable ROMULO FIORE Attending Clinician Unavailable Gt SEYMOUR Attending Clinician Unavailable Hany Attending Clinician Unavailable Giancarlo NOLAND Attending Clinician Unavailable Sal SHETTY Attending Clinician Unavailable Hany Attending Clinician Unavailable SEAN JOHNSON Admitting Clinician Unavailable Allergies, Adverse Reactions, Alerts Allergy Allergy Status Severity Reaction(s) Onset Inactive Treating C omments Name Type Date Date Clinician Infliximab Drug Active High Other (See Po ssible Allergy Comments) 6-20 inflix imab 00:00: -induced 00 autoimmu ne hepatiti s Dill Oil Drug Active High Swelling (Anethum Allergy -19 Graveolens 00:00: ) 00 Adalimumab Propensity Active In fusion to adverse 6-19 React ion reactions 00:00: 00 dill oil Allergy to Active Mild ANGIOEDEMA, ([id number] substance LIP AND 5-23 1) TONGUE 00:00: SWELLING 00 adalimumab Allergy to Active Mild Rash ([id number] substance 5-23 1) 00:00: 00 DILL OIL Drug Active U 2017-09 allergy 1- 00:00: 00 ADALIMUMAB Drug Active U 2017-09 allergy - 00:00: 00 PHENTERMIN Drug Active U Palpitations 2017-09 E allergy 1-02 00:00: 00 DILL OIL Drug Inactive U [...] Date Date Medication? Clinician (SIG) Name Name Jese Hutchins Yes Valentino Jese 5 MG Oral 1-25 Gt MG Oral Tablet 00:00: Tablet 1 00 tab po bid Quantity: 180 Refills: 3 Valentino Del Real MD Start : 1Active Losartan 2019-09 Yes [place] Losartan Potassium 1-30 Dontrell SEYMOUR Potassium 50 MG Oral 09:28: 50 MG Oral Tablet 23 Tablet TAKE 1 TABLET BY MOUTH TWICE DAILY Quantity: 180 Refills: 0 [place] Jon MD Start : 0Active azaTHIOprin 2020- No 150mg Take 3 Take 3 e (IMURAN) [...] 100mg Take 2 Take 2 e (IMURAN) 04-30 09-14 tablets tablets 50 mg 00:00: 00:00 (100 mg (100 mg tablet 00 :00 total) by total) by mouth mouth daily. daily. Metoprolol Yes Valentino Metoprolol Succinate 24 Gt Succinate ER 25 MG 00:00: ER 25 MG Oral Tablet 00 Oral Extended Tablet Release 24 Extended Hour Release 24 Hour 1QD - TAKE ONE TABLET BY MOUTH EVERY DAY Quantity: 90 Refills: 3 Valentino Del Real MD Start : 0Active azaTHIOprin 2020- No 50mg Take 1 Take 1 e (IMURAN) 03-20- tablet (50 tabl et 50 mg 00:00: 00:00 mg total) (50 mg tablet 00 :00 by mouth total) by daily. mouth daily. predniSONE 2019- No 30mg Take 3 Take 3 (DELTASONE) 03-20 08- tablets tablet s 10 MG 00:00: 23:59 (30 mg (30 mg tablet 00 :00 total) by total) by mouth mouth daily for daily for 28 days. 28 days. ibuprofen No 800mg 800 mg, (MOTRIN) 6- Oral, tablet 800 11:35: Every 8 mg 29 hours PRN, pain,mild (1-3), pain,moder ate (4-6), Starting 02/23/20 at 1135
Give with Food or Milk
Ro utine gelatin 2019- No Code/traum sponge,abso 02-22 a/sedation rb-porcine 10:48: 10:48 medication (GELFOAM) 00 :00 , Starting sponge 02/23/20 at 1048 lidocaine 2019- No Code/traum (XYLOCAINE) 02-22 a/sedation 10 mg/mL (1 10:33: 10:33 medication %) 48 :48 , Starting injection 02/23/20 at 1033
Ro utine fentaNYL No Intravenou (PF) 02-22 s, (SUBLIMAZE) 10:27: 10:47 Code/traum injection 09 :00 a/sedation medication , Starting 02/23/20 at 1027
Ro utine midazolam 2019- No Code/traum (VERSED) 02-22 a/sedation injection 10:14: 10:14 medication 29 :29 , Starting 02/23/20 at 1014
Ro utine sodium No Intravenou chloride 02-22 s, (NS) 0.9 % 10:00: 10:00 Code/traum infusion 00 :00 a/sedation continuous med, Starting 02/23/20 at 1000
Ro utine potassium 2019- No 40meq 40 mEq, chloride 02-22- Oral, (KLOR-CON) 08:00: 09:00 Once, Sat CR tablet 00 :00 02/23/20 at 40 mEq 0800, For 1 dose
Ro utine levothyroxi No 225ug 225 mcg, ne 6- Oral, (SYNTHROID) 06:00: Daily tablet 225 00 (standard) mcg , First dose (after last modificati on) on Tue02/23/20 at 0600<br&gt ;Routine predniSONE 2019- No Take [...] until more told to taper more ibuprofen No 600mg 600 mg, (MOTRIN) 02-21 Oral, tablet 600 22:00: 22:06 Once, Fri mg 00 :00 02/22/20 at 2200, For 1 dose
Gi ve [...] on Tue02/22/20 at 0900
Ro utine levothyroxi No 200ug 200 mcg, ne 02-21 Oral, (SYNTHROID) 09:00: 18:37 Daily tablet 200 00 :01 (standard) mcg , First dose on Tue02/22/20 at 0900
Ro utine potassium 2019-2019- No 40meq 40 mEq, chloride 02-21 Oral, (KLOR-CON) 07:00: 07:14 Once, Fri CR tablet 00 :00 02/22/20 at 40 mEq 0700, For 1 dose
Ro utine ibuprofen 2019-2019- No 600mg 600 mg, (MOTRIN) 02-21 Oral, tablet 600 01:00: 01:01 Once, Fri mg 00 :00 02/22/20 at 0100, For 1 dose
Gi ve with Food or Milk
Ro utine hydroxyzine 0 No 25mg 25 mg, (ATARAX) 02-21 Oral, capsule/tab 00:22: Every 6 let 25 mg 38 hours PRN, itching, Starting Tue02/22/20 at 0022
Ro utine aluminum-ma 2019-0 No 30mL 30 mL, gnesium 02-20 Oral, hydroxide-s 23:41: Every 4 imethicone 43 hours PRN, (MAALOX indigestio MAX) n, 80-80-8 heartburn, mg/mL oral Starting suspension Alba 02/21/20 at 2341
Ro utine ondansetron 0 No 4mg 4 mg, (ZOFRAN-ODT 18 Oral, ) 23:41: Every 6 disintegrat 43 [...] Alba 02/21/20 at 2341
Ro utine Ranolazine Yes Valentino Ranolazine ER 500 MG 4-30 Gt ER 500 MG Oral Tablet 18:02: Oral Extended 38 Tablet Release 12 Extended Hour Release 12 Hour TAKE 1 TABLET BY MOUTH TWICE DAILY Quantity: 180 Refills: 3 Valentino Del Real MD Start : 0Active Chlorthalid 2018- Yes Valentino Chlorthali one 25 MG 2- Gt done 25 MG Oral Tablet 00:00: Oral 00 Tablet Take 1 tablet by mouth daily Quantity: 90 Refills: 3 Valentino Del Real MD Start : 06-Aug-2019 Active Losartan 2018- No Valentino Losartan Potassium 1-06 Gt Potassium 50 [...] 28 Refills: 0 Start : 9Active Nitroglycer 2018- Yes Valentino Nitroglyce in 0.4 MG 12-15 Gt rin 0.4 MG Sublingual 00:00: Sublingual Tablet 00 Tablet Sublingual Sublingual DISSOLVE 1 TAB UNDER TONGUE NEEDED FOR CHEST PAIN. MAY REPEAT EVERY 5 MIN UP TO 3 TABS IF NO RELIEF CALL 911. Quantity: 1 Refills: 3 Valentino Del Real MD Start : 9Active 25 Tablet Bottle Sertraline 2018- Yes Sertraline HCl - 50 MG 1- HCl - 50 Oral Tablet 00:00: MG [...] 30 Refills: 0 Start : 09-Jun-2018 Active Amlodipine Yes 10 Once Per Besylate Day [...] Tofacitinib Yes 11 Once Per Citrate Day ranolazine Yes 500mg Take 500 Take 5 [...] mouth mouth 25 MCG daily. daily. tablet atorvastati No 10mg Take 10 mg Denys e 10 n (LIPITOR) by mouth mg by 10 MG daily. mouth tablet daily. inFLIXimab- No 5mg/kg Infuse 5 Infu se 5 dyyb 100 mg mg/kg into mg/ kg SolR a venous into a catheter. venous catheter. azathioprin No 2 Q1D azathiopri e 50 mg ne 50 mg tablet TAKE tablet 3 TABLETS TAKE 3 BY MOUTH TABLETS BY DAILY MOUTH DAILY chlorthalid No chlorthali one 25 mg done [...] nded ended release 24 release 24 hr TAKE 1 hr TAKE 1 TABLET BY TABLET BY MOUTH EVERY MOUTH DAY EVERY DAY nifedipine No 1 Q1D nifedipine ER 30 mg ER 30 mg tablet,exte tablet,ext nded ended release TK release TK 1 T PO QD 1 T PO QD DIRECTED DIRECTED potassium No 1packet BID potassium chloride 20 [...] tablet,exte tablet,ext nded ended release,12 release,12 hr TAKE 1 hr TAKE 1 TABLET BY TABLET BY MOUTH TWICE MOUTH DAILY TWICE DAILY trazodone No 1 Q1D trazodone 100 mg 100 mg tablet Take tablet 1 tablet Take 1 every day tablet by oral every day route as by oral needed. route as needed. cyclobenzap No 1 TID cyclobenza rine 10 mg jessie 10 tablet Take mg tablet 1 tablet 3 Take 1 times a day tablet 3 by oral times a route as day by needed for oral route 30 days. as needed for 30 days. Glucagon No Glucagon Emergency Emergency Kit Kit (human-morgan (human-rec mb) 1 mg omb) 1 mg solution solution for for injection U injection UTD FOR U UTD FOR HYPOGLYCEMI HYPOGLYCEM A IA Humalog No Humalog U-100 U-100 Insulin 100 Insulin unit/mL 100 subcutaneou unit/mL s solution subcutaneo INJ UP TO us 200 UNITS solution SC VIA INJ UP TO INSULIN 200 UNITS PUMP D SC VIA INSULIN PUMP D losartan 50 No 1 Q1D losartan mg tablet 50 mg TK 1 T PO tablet TK BID 1 T PO BID prednisone No 1.5 Q1D prednisone 10 mg 10 mg tablet TK 3 tablet TK TS PO D FOR 3 TS PO D 28 DAYS FOR 28 DAYS potassium No potassium chloride ER chloride 20 mEq ER 20 mEq tablet,exte tablet,ext nded ended release release TAKE 1 TAKE 1 TABLET BY TABLET BY MOUTH TWICE MOUTH DAILY WITH TWICE FOOD DAILY WITH FOOD Arava 20 MG Yes Arava 20 Oral [...] Problem Active liver Liver 05-08 00:00: 00 Pleurisy Pleurisy Problem Active 04-30 00:00: 00 Rheumatoid Rheumatoid Problem Active arthritis Arthritis 04-30 00:00: 00 Acquired Acquired Problem Active hypothyroid Hypothyroid 04-30 ism ism 00:00: 00 Diabetes Diabetes Problem Active mellitus Mellitus 04-30 00:00: 00 Mixed Mixed Problem Active hyperlipide Hyperlipide 04-30 shauna shauna 00:00: 00 Hypothyroid Hypothyroid [id number] Active 2020-02-22 ism ism 02-21 02:03:12 00:00: 00 Hypertensio Hypertensio [id number] Active 2020-02-22 n n 02-21 02:03:12 00:00: 00 Rheumatoid Rheumatoid 04295740 Active 2020-02-22 arthritis arthritis 02-21 02:03:14 00:00: 00 Acute liver Acute liver 36227602 Active 2020-02-22 failure failure 02-21 02:03:10 00:00: 00 Request for Request for Problem Active sterilizati sterilizati on on Nausea, Nausea, Problem Active vomiting, vomiting, and and diarrhea diarrhea Not on file Not on file [id number] Chest pain Chest pain Problem Active Essential Essential Problem Active hypertensio hypertensio n n Palpitation Palpitation Problem Active s s Afib Afib Problem Active Procedures Procedure Date / Time Performed Performing Clinician Devic e Holter monitor 2020-09-29 00:00:00 DP-2D Echo 2020-09-29 00:00:00 OFFICE/OUTPATIENT VISIT EST 2020-04-14 15:15:00 IR BIOPSY LIVER PERCUTANEOUS 2020-02-23 11:00:00 Liv Nichols COMPREHENSIVE METABOLIC PANEL 2020-02-23 05:54:00 Jovanni Mario BILIRUBIN, DIRECT 2020-02-23 05:54:00 Joel Manzo MAGNESIUM 2020-02-23 05:54:00 Jovanni Mario CBC W/ AUTO DIFF 2020-02-23 05:54:00 Jovanni Mario PROTIME-INR 2020-02-23 05:54:00 Jovanni Mario US OUTSIDE FILM FOR CONTINUED 2020-02-22 06:15:50 Boo Johnson am COMPREHENSIVE METABOLIC PANEL 2020-02-22 06:04:00 Jovanni [...] 16:15:00 Cardiac Catheterization 2018-09-05 00:00:00 OFFICE/OUTPATIENT VISIT [facility] 2018-06-09 09:00:00 Other Section Procedures not documented Results Test Description Test Time Test Comments Text Results Atomic Results Result Comments Hemoglobin A1c/Hemoglobin.total in Blood 2020-09-25 08:35:12 Test Item Value Reference Range Comments Hemoglobin A1c/Hemoglobin.total in Blood (test code = 4548-4) 8. 1 % 4-5.6 SARS-CoV-2 RNA Resp Ql CINDI+[id number] 00:00:00 Test Item Value Reference Range Comments SARS-CoV-2 RNA Resp Ql Not detected [place] [facility] Case CINDI+probe (test code = ID: [id number]) Hemoglobin A1C (Performed Elsewhere)\S\2020-05-13 11:35:00 Test Item Value Reference Range Comments HgbA1C (Performed Elsewhere) (test code = 4548-4) 12.1 % 4-5.6 SARS-CoV-2 RNA Resp Ql CINDI+obgah9754-98-56 00:00:00 Test Item Value Reference Range Comments SARS-CoV-2 RNA Resp Ql Not detected [place] [facility] Case CINDI+probe (test code = ID: [id number]) IR Biopsy Liver Percutaneous (02/23/2020 11:00 AM EDT)2020-02-23 11:11:18IR Biopsy Liver Percutaneous (02/23/2020 11:00 AM EDT)SpecimenImpressionsPerformed AtSuccessful ultrasound-guided percutaneous liver biopsies with 2 core samples.[facility] RADNarrativePerformed AtEXAM: PERCUTANEOUS LIVER BIOPSY - ULTRASOUND-GUIDEDDATE: 02/23/2020 11:00 AMACCESSION: [id number]: 11:11 AMINTERPRETATION LOCATION: [facility] CLINICAL INDICATION: 39 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 Radiology nurse was present for the duration of the procedure to assist in patient monitoring. Pre and Post Sedation activities have been reviewed. Dr. Nick Lawrence was present for and supervised the entire procedure. [facility] RADProcedure NoteInterface, Rad Results In - 02/23/2020 11:17 AM EDTEXAM: PERCUTANEOUS LIVER BIOPSY - ULTRASOUND-GUIDED DATE: 02/23/2020 11:00 AM DICTATED: 02/23/2020 11:11 AM INTERPRETATION LOCATION: [facility] CLINICAL INDICATION: 39 years old Female: [...] spent 22 minutes, continuously monitoring the patient abvm-dl-hxzz during the administration of moderate sedation. Radiology nurse was present for the duration of the procedure to assist in patient monitoring. Pre and Post Sedation activities have been reviewed. Dr. Nick Lawrence was present for and supervised the entire procedure. IMPRESSION: Successful ultrasound-guided percutaneous liver biopsies with 2 core samples.PerformingOrganizationAddressCity/State/ZipcodePhone [facility] [id number] [facility], [place] [address]Arxogpemyowns metabolic panel (02/23/2020 5:54 AM EDT)2020-02-23 05:54:00 [...] code = Schistocytes) Rare Not Pres ent [place] Cells (test code = Lamont Cells) Present Not Present Poikilocytosis (test code = Poikilocytosis) Marked Not Present US Outside Film For Continued Care (02/22/2020 6:15 AM EDT)2020-02-22 00:00:00 US Outside Film For Continued Care (02/22/2020 6:15 AM EDT)SpecimenNarrativePerformed AtThese imageswere imported for continued care purposes only. They will not be interpreted and no charges will apply. UNCHCSRADPerforming OrganizationAddressCity/State/ZipcodePhone NumberUNCHCSRAD Total protein [id number] 11:33:00 Test Item Value Reference Range Comments Total Protein (test code = 2885-2) 6.4 6.0-8.3 Ymsmgku1735-00-92 11:33:00 Test Item Value Reference Range Comments Albumin (test code = PQJ6724) 3.9 3.2-5.2 Plasma globulin measurement (mass/volume)2019-09-19 11:33:00 Test Item Value Reference Range Comments Globulin (test code = 67271-8) 2.5 2.6-4.6 Albumin to globulin jkopf1933-78-87 11:33:00 Test Item Value Reference Range Comments Albumin/Globulin Ratio (test code = 034739) 1.6 1.1- 2.5 AST (SGOT) ser/wbpk8207-65-90 11:33:00 Test Item Value Reference Range Comments Aspartate Amino Transf (AST/SGOT) (test code = 14 5 -34 58660867) Alkaline smzblyyncdq1517-41-87 11:33:00 Test Item Value Reference Range Comments Alkaline Phosphatase (test code = 95813976) 87 40-1 50 ALT (SGPT) ser/uabe7038-87-60 11:33:00 Test Item Value Reference Range Comments Alanine Aminotransferase (ALT/SGPT) (test code = 17 0-55 1742-6) Lipase ser/nnxm3856-41-47 11:33:00 Test Item Value Reference Range Comments Lipase (test code = 3040-3) 12 7-78 Magnesium cfbwh2049-98-97 11:33:00 Test Item Value Reference Range Comments Magnesium Level (test code = 492032646) 1.9 1.6-2.6 Sodium vizqv7582-52-93 11:33:00 Test Item Value Reference Range Comments Sodium Level (test code = 069119052) 144 137-144 Potassium iuyew7432-59-69 11:33:00 Test Item Value Reference Range Comments Potassium Level (test code = 120733669) 3.1 3.1-5.1 Chloride xfpkj3038-37-25 11:33:00 Test Item Value Reference Range Comments Chloride Level (test code = 805031876) 110 101-110 Carbon dioxide fqhvg4376-95-18 11:33:00 Test Item Value Reference Range Comments Carbon Dioxide Level (test code = 27374904) 26 22-2 9 Glucose asbyy7151-74-86 11:33:00 Test Item Value Reference Range Comments Glucose Level (test code = 39468269) 78 70-105 [id number] 11:33:00 Test Item Value Reference Range Comments Blood Urea Nitrogen (test code = 297017910) 7.0 7.0- 18.7 Creatinine ipmsl9417-54-91 11:33:00 Test Item Value Reference Range Comments Creatinine (test code = 252221203) 0.72 0.57-1.11 Estimation of creatinine jnmsgxhrg5880-34-47 11:33:00 Test Item Value Reference Range Comments Estimated Creatinine Clearance 133.08 P T Ht: 170.18cm, PT Wt: Calc (test code = 495723203) 102 .7KG Anion gap jravbfceawm3274-88-10 11:33:00 Test Item Value Reference Range Comments Anion Gap (test code = 35337184) 11 7-16 Wqwlmpj6556-46-71 11:33:00 Test Item Value Reference Range Comments Calcium Level (test code = 74275281) 8.6 8.4-10.2 Total pjkbuxcsz2905-48-20 11:33:00 Test Item Value Reference Range Comments Total Bilirubin (test code = VOC8027) 0.2 0.1-1.2 Blood leukocytes automated count (number/volume)2019-09-19 10:25:00 Test Item Value Reference Range Comments White Blood Count (test code = 6690-2) 8.9 3.6-11.1 Blood erythrocytes automated count (number/volume)2019-09-19 10:25:00 Test Item Value Reference Range Comments Red Blood Count (test code = 789-8) 4.09 3.69-4.88 Blood hemoglobin measurement (mass/volume)2019-09-19 10:25:00 Test Item Value Reference Range Comments Hemoglobin (test code = 718-7) 10.9 11.4-14.4 Automated blood hematocrit (volume fraction)2019-09-19 10:25:00 Test Item Value Reference Range Comments Hematocrit (test code = 4544-3) 34.3 33.3-41.4 Automated erythrocyte mean corpuscular cyrybh0311-98-76 10:25:00 Test Item Value Reference Range Comments [...] 31.7 33.5-35.5 786-4) Automated erythrocyte distribution width qwcyp1502-73-49 10:25:00 Test Item Value Reference Range Comments Red Cell Distribution Width (test code = 788-0) 14.1 12.0-15.1 Automated blood platelet count (count/volume)2019-09-19 10:25:00 Test Item Value Reference Range Comments Platelet Count (test code = 777-3) 290 165-353 Automated blood platelet mean volume svqyuaclsxi3127-86-98 10:25:00 Test Item Value Reference Range Comments Mean Platelet Volume (test code = 12356-2) 8.0 7.5-1 0.6 Automated blood neutrophil count as percentage of total qeyzzrkxif1667-44-61 10:25:00 Test Item Value Reference Range Comments Neutrophils (%) (Auto) (test code = 770-8) 63.5 43.2- 71.5 Automated blood lymphocyte count as percentage of total ufvafqrjwb0346-20-43 10:25:00 Test Item Value Reference Range Comments Lymphocytes (%) (Auto) (test code = 736-9) 23.5 16.8- 43.4 Automated blood monocyte count as percentage of total txtxvjlmzv0093-91-06 10:25:00 Test Item Value Reference Range Comments Monocytes (%) (Auto) (test code = 5905-5) 11.7 4.6-12 .4 Automated blood eosinophil count as percentage of total jsykhlttvx0988-00-83 10:25:00 Test Item Value Reference Range Comments Eosinophils (%) (Auto) (test code = 713-8) 0.4 0.7-7 .8 Automated blood basophil count as percentage of total wmfzounfhn3835-30-45 10:25:00 Test Item Value Reference Range Comments [...] = 742-7) 1.0 0.3-0.8 Automated blood eosinophil uuejm1986-26-88 10:25:00 Test Item Value Reference Range Comments Eosinophils # (Auto) (test code = 711-2) 0.0 0.0-0.5 Automated blood basophil count (count/volume)2019-09-19 10:25:00 Test Item Value Reference Range Comments Basophils # (Auto) (test code = 704-7) 0.1 0.0-0.1 Rapid Influenza A\S\2018-10-12 10:45:00 Test Item Value Reference Range Comments Influenza A (test code = FLUA) nEGATIVE Rapid Influenza B\S\2018-10-12 10:45:00 Test Item Value Reference Range Comments Influenza B (test code = FLUB) Negaitive Assessments Condition Name Status Diagnosis Date Treating Clinici an Diabetes mellitus Active 2020-09-25 07:35:29 Long-term current use of insulin Active 2020-09-25 07:3 5:30 Steroid-induced diabetes Active 2020-09-25 07:35:31 Body mass index 30+ - obesity Active 2020-09-25 08:34:1 9 Diabetes mellitus Active 2020-06-27 17:41:54 Long-term current use of insulin Active 2020-06-27 17:4 1:54 Steroid-induced diabetes Active 2020-07-01 16:13:56 Diabetes mellitus Active 2020-04-30 11:19:12 Long-term current use of insulin Active 2020-05-13 16:5 7:53 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 mellitus with Active hyperglycemia 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 2020-08-18 2020-08-18 Outpatient [facility] [id number] 00:00:00 00:00:00 2020-07-01 2020-07-01 Geri Goldsteint [id number] _[id number] 00:00:00 00:00:00 [facility] 1027 PA-C: [address], [facility], [place] [address], Ph. 2020-06-12 2020-06-12 ISAIAH Parks [facility] [id number] 15:45:00 15:45:00 ; Valentino Garnett MD 2020-05-19 2020-05-19 Outpatient [facility] [id number] 00:00:00 00:00:00 2020-05-13 2020-05-13 Geri Goldsteint [id number] _[id number] 00:00:00 00:00:00 [facility] 0908 PA-C: [address], [place] [address], Ph. 2020-04-30 2020-04-30 Outpatient EL [facility] [id number]_ 00:00:00 23:59:00 [id number] 2020-04-30 Outpatient [facility] [id number] 00:00:00 00:00:00 2020-04-14 2020-04-14 Outpatient Hany [facility] 2 [id number] 15:15:00 15:15:00 [facility] [id number] s [id number] and [facility], 2020-03-26 2020-03-26 Outpatient [facility] [id number] 00:00:00 00:00:00 2020-03-20 2020-03-20 Outpatient [facility] [id number] 00:00:00 00:00:00 2020-03-19 2020-03-19 Outpatient EL [facility] [id number]_ 11:55:07 14:34:06 [id number] 2020-03-18 2020-03-18 Outpatient [facility] [id number] 09:00:00 10:00:00 2020-03-18 2020-03-18 Outpatient EL [facility] [id number] 00:00:00 00:00:00 [id number] 2020-03-16 2020-03-16 Outpatient [facility] [id number] 00:00:00 00:00:00 2020-02-21 2020-02-23 Inpatient ER REARICK, [facility] [id number]_ 23:35:00 15:08:00 OUMOU [id number] 2020-02-21 2020-02-23 Inpatient [facility] [id number] 23:35:00 15:08:00 2020-02-21 2020-02-21 Outpatient [facility] [id number] 00:00:00 00:00:00 2020-02-21 2020-02-21 Outpatient [facility] [id number] 00:00:00 00:00:00 2020-02-21 2020-02-21 Outpatient [facility] [id number] 00:00:00 00:00:00 2019-09-19 2019-09-19 Emergency ED JUAN DANIEL NOLAND [facility] [id number] 09:02:00 12:40:00 4 2019-09-14 2019-09-14 Appointment EVIE Del RealCITLALI [facility] [id number] 13:00:00 13:00:00 ; Valentino Garnett MD 2019-09-06 2019-09-06 [facility] [id number] 15:45:00 15:45:00 [facility] [id number] s [id number] and [id number] Multispecialt y Clinic, 2019-08-13 2019-08-13 Appointment CETW [facility] [id number] 16:00:00 16:00:00 ; JUSTINE amanda, Clinical WB 2019-08-13 2019-08-13 [facility] [id number] 15:00:00 15:00:00 ; JUSTINE amanda, Echo 2019-08-06 2019-08-06 Appointment EVIE Del RealCITLALI [facility] [id number] 13:00:00 13:00:00 ; Valentino Garnett MD 2019-06-12 2019-06-12 Appointment EVIE Del RealCITLALI [facility] [id number] 15:45:00 15:45:00 ; Valentino Garnett MD 2019-04-20 2019-04-20 Outpatient [facility] 9 [id number] 14:15:00 14:15:00 [facility]???s [id number] and [id number] Multispecialt MANAS y Clini 2019-01-25 2019-01-25 Outpatient JIMMIE BeanDOMINIC, [facility] [id number] 00:03:00 00:03:00 CLARITA 6 2018-12-29 2018-12-29 Appointment ISAIAH Del Real [facility] [id number] 08:00:00 08:00:00 ; Valentino Garnett MD 2018-12-15 2018-12-15 Appointment ISAIAH Del Real [facility] [id number] 11:00:00 11:00:00 ; Valentino Garnett MD 2018-11-27 2018-11-27 App[id number] 08:00:00 08:00:00 ; Valentino Garnett MD 2018-09-25 2018-09-25 Outpatient [facility] 3 [id number] 16:15:00 16:15:00 [facility] [id number] s [id number] [facility] [place] 2018-06-09 2018-06-09 Outpatient [facility] 4 [id number] 09:00:00 09:00:00 [facility] [id number] and [facility], [place] Immunizations Ordered Immunization Filled Immunization Date Status Commen ts Refusal Reason Name Name COVID-19, mRNA, 2020-09-24 Completed LNP-S, PF, 100 00:00:00 mcg/0.5 mL dose COVID-19, mRNA, 2020-09-05 Completed LNP-S, PF, 100 00:00:00 mcg/0.5 mL dose influenza, 2020-05-30 Completed injectable, 00:00:00 quadrivalent Payers Payer Name Policy Type Policy Number Effective Date Expiration D ate [employer] BLUE [id number] 2019 00:00:00 OPTIONS/PPO/ADV Plan of Treatment Planned [...] Scheduled Test [code = ] Future Appointment 2020 09:00:00 Geri Onofre, [address]; [place] [address] Future Appointment 2020-12-23 00:00:00 Geri Onofre, [address] , [place] [address] Future Appointment 2020-10-03 13:20:00 Geri Onofre, [address]; [address], [place] [address] Social History Social Habit Start Date Stop Date Comments Tobacco use and exposure 2020-02-22 00:00:00 2020-02-22 00:00:00 Tobacco smoking status NHIS 2020-02-22 00:00:00 2020-02-22 00:00 :00 Alcohol intake 2020-02-22 00:00:00 2020-02-22 00:00:00 Smoking Status Start Date Stop Date Never smoker Never Smoker Social History Observation Description Sex Female Vital Signs Vital Name Observation Time Observation Value Comments BP Diastolic 2020-09-25 00:00:00 94 mm[Hg] Height 2020-09-25 00:00:00 67 [in_i] BMI (Body Mass Index) 2020-09-25 00:00:00 37.7 kg/m2 BP Systolic 2020-09-25 00:00:00 160 mm[Hg] Body Weight 2020-09-25 00:00:00 241 [lb_av] BP Diastolic 2020-07-01 00:00:00 80 mm[Hg] Height [...] 2019-09-19 09:13:00 102.7000 kg HEIGHT 2019-09-19 09:13:00 170.277393 cm WEIGHT 2019-01-25 07:45:00 84 kg HEIGHT 2019-01-25 07:45:00 170.968328 cm WEIGHT 2019-01-25 00:03:00 84 kg HEIGHT 2019-01-25 00:03:00 170.114762 cm Systolic blood pressure 2020-02-23 11:24:00 125 [...] kg/m2 Hospital Discharge Instructions 1. Diabetes mellitus C-peptide, serum 2. Long-term current use of insulin glucose, fingerstick, blood 3. Steroid-induced diabetes HbA1c (hemoglobin A1c), blood 4. Body mass index 30+ - obesity eating healthy foods: care instructions Discussion Note: None recorded.1. Diabetes mellitus 2. Long-term current use of insulin 3. Steroid-induced diabetes Discussion Note: None recorded. Patient educational handouts: No information available.1. Diabetes mellitus HbA1c (hemoglobin A1c), blood glucose, fingerstick, blood C-peptide, serum GAD65 Ab, QN, IA, Serum insulin Ab, serum - Transfer the serum into a [facility] PP transpak frozen purple tube tube with screw cap ([facility] N [id number]). Freeze immediately and maintain frozen until tested. To avoid delays in turnaround time when requesting multiple tests on frozen samples,please submit separate frozen specimens for each test requested. islet cell Ab (ia-2), serum - Transfer the serum into a [facility] PP transpak frozen purple tube with screw cap ([facility] No. [id number]). Freeze immediately and maintain frozen until tested. To avoid delays in turnaround time when requesting multiple tests on frozen samples, please submit separate frozen specimens for each test requested. 2. Long-term current use of insulin Discussion Note: None recorded. Patient educational handouts: No information available.
== END 2020-09-29 07:38 | disposition home or self-care (01) | DRG 310 ==
LOC: ER 04:00 → EH 06:20 → UNDOADMIN 06:28 → EH 06:28 → ER 07:36 → EH 07:36 → UNDODISIN 07:38
PROVIDERS: ADMIT Family Medicine; ATTEND Family Medicine
DX: I48.0 Paroxysmal atrial fibrillation (principal); I10 Essential (primary) hypertension; M06.9 Rheumatoid arthritis, unspecified; E09.9 Drug or chemical induced diabetes mellitus without complications; T38.0X5A Adverse effect of glucocorticoids and synthetic analogues, initial encounter; Z79.890 Hormone replacement therapy; E78.5 Hyperlipidemia, unspecified; E03.8 Other specified hypothyroidism; T38.1X6A Underdosing of thyroid hormones and substitutes, initial encounter; F41.9 Anxiety disorder, unspecified; Z91.138 Patient's unintentional underdosing of medication regimen for other reason; J45.909 Unspecified asthma, uncomplicated; Z88.8 Allergy status to other drugs, medicaments and biological substances; Z79.4 Long term (current) use of insulin; Z79.899 Other long term (current) drug therapy; Z82.49 Family history of ischemic heart disease and other diseases of the circulatory system
CPT/HCPCS: 36415; 71045; 80053; 82550; 82553; 82962; 83735; 84439; 84443; 84481; 84484; 85025; 93005; 93010; 99285